=== PATIENT | male | born 1965 | race Caucasian/White ===

== ENCOUNTER 2021-09-16 03:26 | Inpatient (IN) ==
[2021-09-16 04:21] LABS: INR 1.1 (0.9-1.1); Prothrombin Time 10.9 Seconds (9.0-12.0)
[2021-09-16 04:31] LABS: BUN Creatinine Ratio 16.5 (10-20); Calcium 8.5 mg/dl (8.5-10.1); Creatinine Clr Calc Pharmacy 74.9 ml/min; Est GFR (African American) 76.9 ml/min; Est GFR (Non-African American) 66.3 ml/min; Potassium 3.8 mmol/L (3.5-5.1)
[2021-09-16 04:33] LABS: Albumin Globulin Ratio 0.8 (0.9-2); Bilirubin,Total 0.3 mg/dl (0.2-1); Globulin 3.8 gm/dl (2.5-4.0); Total Protein 6.8 gm/dl (6.4-8.2)
[2021-09-16 04:38] LABS: Hematocrit (blood only) 15.4 % (42-52); Mean Corpuscular Hemoglobin 16.7 pg (25-34); Mean Corpuscular Volume 64.2 fL (80-100); Mean Platelet Volume 9.4 fL (7.4-10.4); Platelet Count 424 K/uL (130-400); RDW Coefficient of Variation 17.9 % (11.5-14.5); RDW Standard Deviation 41.9 fL (36.4-46.3)
[2021-09-16 04:40] LABS: Basophils # (auto) 0.02 K/uL (0-0.2); Basophils % (auto) 0.2 %; Eosinophils # (auto) 0.35 K/uL (0-0.5); Eosinophils % (auto) 2.9 %; Hypochromasia Present; Immature Granulocytes # (auto) 0.02 K/uL (0.00-0.02); Immature Granulocytes % (auto) 0.2 %; Lymphocytes # (auto) 1.44 K/uL (1.2-3.4); Monocytes # (auto) 0.73 K/uL (0.11-0.59); Monocytes % (auto) 6.1 %; Neutrophils # (auto) 9.44 K/uL (1.4-6.5); Neutrophils % (auto) 78.6 %; Ovalocytes 1+; Tear Drop Cells 1+
[2021-09-16] MEDS ORDERED: PANTOPRAZOLE BOLUS/DRIP 1 EA IV STA (07:04)
--- NOTE | 2021-09-16 07:14 | Emergency Department Note ---
Impression & Plan Anemia, DVT (deep venous thrombosis), Heme positive stool Admit to the [facility] ED Provider Note NAME: FRANCIE AVILES AGE: 56 SEX: M ARRIVES VIA: Walk-In INFORMANT: Patient his daughter ED PROVIDER(S): Angie Branch DO CHIEF COMPLAINT: Low hemoglobin PLAN: Disposition: Admit to the [facility] Condition: Stable MEDICAL DECISION MAKING: This is a 56-year-old male patient who presents to the emergency department at the direction of his PCP for a low hemoglobin. The patient had been seen yesterday for generalized weakness and shortness of breath. Routine laboratory testing was done and the results came back tonight with a hemoglobin less than 4. Patient had also had a left lower extremity duplex performed which showed evidence of a clot. The patient had been started yesterday on Eliquis. Hemoccult testing of the stool here was positive. The case was discussed with the [facility] and they will admit for symptomatic anemia. Triage Nursing notes reviewed and agree with them. Additional history obtained from patient's daughter Vital Signs: reviewed and remarkable for tachycardia Differential diagnosis: GI bleeding, symptomatic anemia, PT Diagnostics interpreted by me: Cardiac Monitoring: Sinus tachycardia at 102 Laboratory studies: See below HPI: 56/M arrives for evaluation of anemia. Patient presents to the emergency department at the direction of his PCP for profound anemia. The patient had b een feeling increasingly short of breath and weak over the past couple of weeks. He was originally seen at urgent care for those complaints and was told he had seasonal allergies. He followed up with his PCP who found the patient extremely pale and ordered routine blood work. Hemoglobin was found to be less than 4. The patient received a phone call overnight describing this blood level and was told to come to the emergency department. Patient also complained of left leg pain for which he had an ultrasound and this revealed a DVT for which she was started on Eliquis. ROS: See above HPI for pertinent positives & negatives. A total of 10 systems reviewed and were otherwise negative. PAST MEDICAL HISTORY:Patient denies any health history PAST SURGICAL HISTORY:See Below FAMILY HISTORY:See Below SOCIAL HISTORY:Patient is ; he does not smoke HOME MEDICATIONS:See list ALLERGIES:None VITALS:See Below PHYSICAL EXAMINATION: HEENT: Head - normocephalic and atraumatic. Pupils are equal, round, and reactive to light. Extraocular eye muscles are intact, and sclera are anicteric. Nose - moist nasal mucosa without discharge. Mouth - moist buccal mucosa. Oropharynx is nonerythematous and there is no tonsillar exudate or edema noted. Poor dentition Neck: Supple; no cervical lymphadenopathy Heart: Regular rate and rhythm. There is a normal S1 and S2 with no murmurs, clicks, or gallops appreciated. Lungs: Clear to auscultation bilaterally with no wheezes, rales, or rhonchi. Abdomen: Soft, completely nontender, nondistended, with good bowel sounds. There are no palpable pulsatile masses or hepatosplenomegaly. There is no guarding, rigidity, or rebound noted. Extremities: No evidence of cyanosis, clubbing, or edema. There are easily palpable peripheral pulses. Skin: Extremely pale, warm and dry with good turgor and no rashes. ED COURSE: Times/Reassessments: 0455: The patient was evaluated in room C10. A complete history and physical was performed. An IV lock was initiated and labs were drawn as above. An order was placed for continuous cardiac monitoring. The patient is in a sinus tachycardia at 102. Nursing staff tested the patient stools and they were heme positive although the stool was brown in color. I discussed the case with the [facility] and they will evaluate for further management. Angie Branch DO Past Med/Surg History Medical History (Updated 09/17/21 @ 08:55 by Angie Branch DO) DVT (deep venous thrombosis) No known health problems Surgical History No history of previous surgery Family History Other No history of previous surgery No known health problems Social History Smoking Status: Never smoker Do You Dip or Chew Tobacco: Yes; Hx Alcohol Use: No Hx Substance Use: No Preferred Language: Lao Communication Ability: Effective Storage And Backup Administrator Required: No Beliefs That Will Affect Care: None marital status: Current Living Situation: Spouse Other Information That Helps Us Care for You: No Feels Safe at Home: Yes Safety Concerns: Feels Safe At This Time Assistive Devices: None Allergies Allergies Allergy/AdvReac Type Severity Reaction Status Date / Time No Known Allergies Allergy Unverified 09/16/21 08:17 Home Meds Home Medications Medication Instructions Recorded Confirmed apixaban 5 mg tablet (Eliquis) 5 mg PO BID 09/16/21 09/16/21 benzonatate 100 mg capsule 100 mg PO TID 09/16/21 09/16/21 levocetirizine 5 mg tablet 5 mg PO DAILY 09/16/21 09/16/21 omeprazole 20 mg capsule,delayed 20 mg PO DAILY 09/16/21 09/16/21 release Results & Data (ED) Vital Signs Vital Signs - 24 hr 09/16/21 03:31 Temperature 37.1 C Temperature Source Temporal Artery Scan Pulse Rate 102 H Respiratory Rate 20 Respiratory Depth Normal Blood Pressure 131/72 Blood Pressure Mean 91 Pulse Oximetry 98 Oxygen Delivery Method Room Air Sepsis Recent Fever Within 48 Hours No Sepsis New/Unexplained Change in Mental Status N/A Sepsis Action Taken by Nursing No Action Required Laboratory Data Result diagrams: 09/17/21 05:26 09/17/21 05:26 Lab Results 09/16/21 09/16/21 09/16/21 Range/Units 04:01 04:01 04:01 WBC 12.00 H (4.8-10.8) K/uL RBC 2.40 L (4.7-6.1) M/uL Hgb 4.0 L* (14.0-18.0) g/dL Hct 15.4 L* (42-52) % MCV 64.2 L (80-100) fL MCH 16.7 L (25-34) pg MCHC 26.0 L (32-36) g/dL RDW Std Deviation 41.9 (36.4-46.3) fL RDW Coeff of Jaad 17.9 H (11.5-14.5) % Plt Count 424 H (130-400) K/uL MPV 9.4 (7.4-10.4) fL Immature Gran % (Auto) 0.2 % Neut % (Auto) 78.6 % Lymph % (Auto) 12.0 % Mitchell % (Auto) 6.1 % Eos % (Auto) 2.9 % Baso % (Auto) 0.2 % Neut # (Auto) 9.44 H (1.4-6.5) K/uL Lymph # (Auto) 1.44 (1.2-3.4) K/uL Mitchell # (Auto) 0.73 H (0.11-0.59) K/uL Eos # (Auto) 0.35 (0-0.5) K/uL Baso # (Auto) 0.02 (0-0.2) K/uL Immature Gran # (Auto) 0.02 (0.00-0.02) K/uL Hypochromasia Present Tear Drop Cells 1+ Ovalocytes 1+ PT (9.0-12.0) Seconds INR (0.9-1.1) Sodium 141 (136-145) mmol/L Potassium 3.8 (3.5-5.1) mmol/L Chloride 110 H (98-107) mmol/L Carbon Dioxide 24 (21-32) mmol/L Anion Gap 7.0 (3-11) BUN 20 H (7-18) mg/dl Creatinine 1.22 (0.6-1.4) mg/dl Est Cr Clr Drug Dosing 74.9 ml/min Est GFR ( Amer) 76.9 ml/min Est GFR (Non-Af Amer) 66.3 ml/min BUN/Creatinine Ratio 16.5 (10-20) Glucose 100 H (70-99) mg/dl Calcium 8.5 (8.5-10.1) mg/dl Total Bilirubin 0.3 (0.2-1) mg/dl AST 9 L (15-37) U/L ALT 17 (12-78) U/L Alkaline Phosphatase 111 (45-117) U/L Total Protein 6.8 (6.4-8.2) gm/dl Albumin 3.0 L (3.4-5.0) gm/dl Globulin 3.8 (2.5-4.0) gm/dl Albumin/Globulin Ratio 0.8 L (0.9-2) POC Stool Occult Blood (Negative) COVID-19 Eval Order SARS-CoV-2 (PCR) (Negative) Blood Type O Positive Blood Type Recheck Antibody Screen NEGATIVE Crossmatch See Detail 09/16/21 09/16/21 09/16/21 Range/Units 04:01 05:10 05:32 WBC (4.8-10.8) K/uL RBC (4.7-6.1) M/uL Hgb (14.0-18.0) g/dL Hct (42-52) % MCV (80-100) fL MCH (25-34) pg MCHC (32-36) g/dL RDW Std Deviation (36.4-46.3) fL RDW Coeff of Jada (11.5-14.5) % Plt Count (130-400) K/uL MPV (7.4-10.4) fL Immature Gran % (Auto) % Neut % (Auto) % Lymph % (Auto) % Mitchell % (Auto) % Eos % (Auto) % Baso % (Auto) % Neut # (Auto) (1.4-6.5) K/uL Lymph # (Auto) (1.2-3.4) K/uL Mitchell # (Auto) (0.11-0.59) K/uL Eos # (Auto) (0-0.5) K/uL Baso # (Auto) (0-0.2) K/uL Immature Gran # (Auto) (0.00-0.02) K/uL Hypochromasia Tear Drop Cells Ovalocytes PT 10.9 (9.0-12.0) Seconds INR 1.1 (0.9-1.1) Sodium (136-145) mmol/L Potassium (3.5-5.1) mmol/L Chloride (98-107) mmol/L Carbon Dioxide (21-32) mmol/L Anion Gap (3-11) BUN (7-18) mg/dl Creatinine (0.6-1.4) mg/dl Est Cr Clr Drug Dosing ml/min Est GFR ( Amer) ml/min Est GFR (Non-Af Amer) ml/min BUN/Creatinine Ratio (10-20) Glucose (70-99) mg/dl Calcium (8.5-10.1) mg/dl Total Bilirubin (0.2-1) mg/dl AST (15-37) U/L ALT (12-78) U/L Alkaline Phosphatase (45-117) U/L Total Protein (6.4-8.2) gm/dl Albumin (3.4-5.0) gm/dl Globulin (2.5-4.0) gm/dl Albumin/Globulin Ratio (0.9-2) POC Stool Occult Blood Positive A (Negative) COVID-19 Eval Order SARS-CoV-2 (PCR) (Negative) Blood Type Blood Type Recheck O Positive Antibody Screen Crossmatch 09/16/21 09/16/21 Range/Units 05:35 05:35 WBC (4.8-10.8) K/uL RBC (4.7-6.1) M/uL Hgb (14.0-18.0) g/dL Hct (42-52) % MCV (80-100) fL MCH (25-34) pg MCHC (32-36) g/dL RDW Std Deviation (36.4-46.3) fL RDW Coeff of Jada (11.5-14.5) % Plt Count (130-400) K/uL MPV (7.4-10.4) fL Immature Gran % (Auto) % Neut % (Auto) % Lymph % (Auto) % Mitchell % (Auto) % Eos % (Auto) % Baso % (Auto) % Neut # (Auto) (1.4-6.5) K/uL Lymph # (Auto) (1.2-3.4) K/uL Mitchell # (Auto) (0.11-0.59) K/uL Eos # (Auto) (0-0.5) K/uL Baso # (Auto) (0-0.2) K/uL Immature Gran # (Auto) (0.00-0.02) K/uL Hypochromasia Tear Drop Cells Ovalocytes PT (9.0-12.0) Seconds INR (0.9-1.1) Sodium (136-145) mmol/L Potassium (3.5-5.1) mmol/L Chloride (98-107) mmol/L Carbon Dioxide (21-32) mmol/L Anion Gap (3-11) BUN (7-18) mg/dl Creatinine (0.6-1.4) mg/dl Est Cr Clr Drug Dosing ml/min Est GFR ( Amer) ml/min Est GFR (Non-Af Amer) ml/min BUN/Creatinine Ratio (10-20) Glucose (70-99) mg/dl Calcium (8.5-10.1) mg/dl Total Bilirubin (0.2-1) mg/dl AST (15-37) U/L ALT (12-78) U/L Alkaline Phosphatase (45-117) U/L Total Protein (6.4-8.2) gm/dl Albumin (3.4-5.0) gm/dl Globulin (2.5-4.0) gm/dl Albumin/Globulin Ratio (0.9-2) POC Stool Occult Blood (Negative) COVID-19 Eval Order Covid19 at [facility] SARS-CoV-2 (PCR) NEGATIVE (Negative) Blood Type Blood Type Recheck Antibody Screen Crossmatch Administered Medications Acetaminophen (Acetaminophen 325 Mg Tab) 650 mg PO Q4H PRN PRN Reason: Pain or Fever Stop: 10/16/21 07:22 Last Admin: 09/16/21 19:32 Dose: 650 mg Documented by: [id number] Sodium Chloride (Nss 1000ml) 1,000 mls @ 80 mls/hr IV .[id number] [facility] Stop: 10/16/21 07:22 Last Admin: 09/17/21 01:00 Dose: 80 mls/hr Documented by: [id number] Infusion: 09/16/21 20:30 Dose: 80 mls/hr Documented by: [id number] Admin: 09/16/21 08:00 Dose: 80 mls/hr Documented by: [id number] Pantoprazole Sodium 40 mg/ (Dextrose) 100 mls @ 20 mls/hr IV Q5H [facility] Stop: 10/16/21 07:59 Last Admin: 09/17/21 04:09 Dose: 8 mg/hr, 20 mls/hr Documented by: [id number] Infusion: 09/17/21 04:09 Dose: 8 mg/hr, 20 mls/hr Documented by: [id number] Admin: 09/16/21 23:27 Dose: 8 mg/hr, 20 mls/hr Documented by: [id number] Infusion: 09/16/21 23:13 Dose: 8 mg/hr, 20 mls/hr Documented by: [id number] Admin: 09/16/21 18:13 Dose: 8 mg/hr, 20 mls/hr Documented by: [id number] Infusion: 09/16/21 18:13 Dose: 8 mg/hr, 20 mls/hr Documented by: [id number] Admin: 09/16/21 14:12 Dose: 8 mg/hr, 20 mls/hr Documented by: [id number] Infusion: 09/16/21 14:12 Dose: 8 mg/hr, 20 mls/hr Documented by: [id number] Admin: 09/16/21 09:21 Dose: 8 mg/hr, 20 mls/hr Documented by: [id number] Iodixanol (Visipaque) 15 ml IV UD PRN PRN Reason: Interaction Checking Stop: 09/20/21 13:34 Last Admin: 09/16/21 13:36 Dose: 15 ml Documented by: [id number] Discontinued Medications Acetaminophen (Acetaminophen 325 Mg Tab) 650 mg PO NOW ONE Stop: 09/16/21 07:31 Last Admin: 09/16/21 08:45 Dose: Not Given Documented by: [id number] Acetaminophen (Acetaminophen 325 Mg Tab) 650 mg PO NOW ONE Stop: 09/17/21 07:01 Last Admin: 09/17/21 08:28 Dose: 650 mg Documented by: [id number] Cefazolin Sodium (Cefazolin 2,000 Mg/15 Ml Iv Push) Confirm Administered Dose 2,000 mg IV .STK-MED ONE Stop: 09/16/21 12:58 Last Admin: 09/16/21 14:11 Dose: Not Given Documented by: [id number] Diphenhydramine HCl (Diphenhydramine Capsule 25 Mg Cap) 25 mg PO NOW ONE Stop: 09/17/21 07:01 Last Admin: 09/17/21 08:28 Dose: 25 mg Documented by: [id number] Fentanyl Citrate (Fentanyl Citrate 100 Mcg/2 Ml Vial) Confirm Administered Dose 100 mcg .ROUTE .STK-MED ONE Stop: 09/16/21 12:55 Last Admin: 09/16/21 13:13 Dose: 25 mcg Documented by: [id number] Furosemide (Furosemide Inj 20 Mg/2 Ml Vial) 20 mg IV ONE ONE Stop: 09/16/21 10:31 Last Admin: 09/16/21 11:20 Dose: 20 mg Documented by: [id number] Pantoprazole Sodium (Protonix Bolus/Drip) 0 mls @ 1 mls/hr IV ONE STA Stop: 09/16/21 07:05 Last Admin: 09/16/21 11:09 Dose: Not Given Documented by: [id number] Pantoprazole Sodium 80 mg/ (Dextrose) 120 mls @ 400 mls/hr IV NOW ONE Stop: 09/16/21 08:02 Last Infusion: 09/16/21 11:07 Dose: 0 mls/hr Documented by: [id number] Admin: 09/16/21 09:05 Dose: 400 mls/hr Documented by: [id number] Cefazolin Sodium (Ancef 2000mg) 2,000 mg in 15 mls @ 2.5 mls/min IV PREOP ONE; Protocol Stop: 09/16/21 10:45 Last Admin: 09/16/21 13:01 Dose: 2.5 mls/min Documented by: [id number] Ioversol (Optiray 320 125ml) 120 ml IV ONCE ONE Stop: 09/16/21 07:20 Last Admin: 09/16/21 07:20 Dose: 120 ml Documented by: [id number] Lidocaine HCl (Lidocaine 1% Local 20 Ml Vial) 7 ml INJ NOW ONE Stop: 09/16/21 13:36 Last Admin: 09/16/21 13:36 Dose: 7 ml Documented by: [id number] Midazolam HCl (Midazolam Hcl 1 Mg/Ml 2ml Vial) Confirm Administered Dose 2 mg .ROUTE .STK-MED ONE Stop: 09/16/21 12:55 Last Admin: 09/16/21 13:13 Dose: 1 mg Documented by: [id number] Miscellaneous Information (Patient's Allergy Info Needs Entered) 1 ea N/A Q30M [facility] Stop: 10/16/21 07:29 Last Admin: 09/16/21 11:10 Dose: Not Given Documented by: [id number] Admin: 09/16/21 11:10 Dose: Not Given Documented by: [id number] Admin: 09/16/21 11:07 Dose: Not Given Documented by: [id number] Discharge Plan Visit Data Chief Complaint: Abnormal Labs/Diagnostic Testing Stated Complaint: DOC ORDERED BLOOD TRANSFUSION ED Provider: Angie Branch Discharge Problem: Anemia, DVT (deep venous thrombosis), Heme positive stool Patient Disposition: Admitted As Inpatient Discharge Instructions Interventions: ED Discharge Assessment Last Done: 09/16/21 10:37 Discharge Problem: Anemia Qualifiers: Anemia type: unspecified type Qualified Code(s): D64.9 - Anemia, unspecified DVT (deep venous thrombosis) Qualifiers: DVT location: lower extremity Affected thrombotic vein of extremity: unspecified lower extremity distal vein Chronicity: acute Laterality: left Qu alified Code(s): I82.4Z2 - Acute embolism and thrombosis of unspecified deep veins of left distal lower extremity
[2021-09-16] MEDS ORDERED: OPTIRAY 320 125ml IV ONE (07:19)
[2021-09-16] MEDS ORDERED: SODIUM CHLORIDE 0.9% 250 ML IV PRN (07:23)
[2021-09-16] MEDS ORDERED: NITROGLYCERIN SL 0.4 MG/TAB TAB SL PRN (07:23)
[2021-09-16] MEDS ORDERED: ACETAMINOPHEN 325 MG TAB PO PRN (07:23)
[2021-09-16] MEDS ORDERED: ONDANSETRON INJ 2 MG/ML 2 ML VIAL IV PRN (07:23)
[2021-09-16] MEDS ORDERED: ACETAMINOPHEN 325 MG TAB PO ONE (07:30)
[2021-09-16] MEDS ORDERED: PANTOprazole 80 MG in DEXTROSE 5% 100 ML IV ONE (07:45)
[2021-09-16] MEDS: SODIUM CHLORIDE 0.9% 1000ML 1,000 ML IV SCH (08:00)
--- NOTE | 2021-09-16 08:14 | CT Scan Report ---
CT angio chest PE protocol CT DOSE: 480.59 mGy.cm HISTORY: 56 years-old Male with PE. Acute shortness of breath TECHNIQUE: Multiple CTA images of the chest were obtained after the intravenous administration of 120 ml Optiray. Coronal and sagittal MIPS were obtained from the axial data set and were submitted for review. All measurements were obtained according to NASCET criteria. A dose lowering technique was u tilized adhering to the principles of ALARA. COMPARISON: None. FINDINGS: CTA: Mild cardiomegaly. No pericardial effusion. No thoracic aortic aneurysm or dissection. Patency of the imaged great vessels. The pulmonary artery is opacified to level the subsegmental branches. Evaluati on is limited secondary to respiratory motion artifact. Segmental and subsegmental pulmonary emboli o f the right lower lobe and lingula. No central pulmonary bullae or right heart strain. CT CHEST: Unremarkable thyroid. Mildly enlarged paratracheal, subcarinal and hilar lymph nodes measure up to ap proximately 10 mm. Trace pleural effusions. No pneumothorax. Mild intralobular septal thickening with subsegmental bibasilar atelectasis. 2.6 cm subpleural consolidative opacity of the lingula on image 132. The central airways are patent. Large hiatal hernia. Mild diffuse esophageal wall thickening. Unremarkable soft tissues. There is no acute fracture. IMPRESSION: 1. Study is degraded by respiratory motion artifact. Segmental and subsegmental bilateral pulmonary e mboli are noted without evidence of right heart strain. 2. Trace pleural effusions. 3. Cardiomegaly with mild pulmonary edema. 4. Groundglass densities of the lingula with a 2.6 cm subpleural consolidative density suggestive of pneumonia versus pulmonary infarct. 5. Large hiatal hernia with mild diffuse esophageal wall thickening. ACT 112: Negative or not required by law. The above report was generated using voice recognition software. It may contain grammatical, syntax o r spelling errors. Electronically signed by: Kadeem Linder M.D. 09/16/2021 8:13 AM
[2021-09-16] MEDS: PANTOprazole 40 MG in DEXTROSE 5% 100 ML IV SCH ×4 (09:21→23:27)
[2021-09-16 09:28] LABS: Appearance Urine Clear (Clear); Bilirubin Urine Negative (Negative); Blood Urine Negative (Negative); Color Urine Yellow; Glucose Urine UA Negative (Negative); Ketones Urine Negative (Negative); Leukocyte Esterase Urine Negative (Negative); Nitrite Urine Negative (Negative); Protein Urine Negative (Negative); Specific Gravity Urine > 1.045 (1.000-1.030); Urobilinogen Urine Negative (Negative)
--- NOTE | 2021-09-16 09:31 | Gastrointestinal Consultation ---
Date of Consultation September 16, 2021 Assessment & Plan (1) Iron deficiency anemia: 56 year old male admitted w/ symptomatic microcytic anemia, HGB 4, outpatient labs show iron deficiency w/ CT imaging showing bilateral pulmonary emboli, large HH w/ esophageal wall thickening Admit for further workup PO PPI BID Trend HGB Monitor output Transfuse per primary team Recommend full liquids Sunday and Sunday Can have clear liquids Sunday Golytely 4L on Sunday starting around 1700 NPO after midnight EGD/Colonoscopy 09/19/21 Thank you for allowing us to participate in the care of this patient. Please call with any acute changes, questions or concerns. Please see addendum below with additional recommendation from my supervising physician. Supervising Physician Co-Signing Physician Notes I saw and evaluated the patient in the emergency room. We were consulted for evaluation of severe iron deficiency anemia. The patient denies having hematochezia, melena, hematemesis but notes that has had some alteration of his bowel habits over the past 6 to 8 weeks. The patient has never undergone upper endoscopy nor colonoscopy in the past. Physical examination Pallor of skin noted No abdominal tenderness noted No caput medusa noted Impression patient presents with severe iron deficiency anemia with active transfusion as we are doing her evaluation today. Given the iron deficiency we would recommend upper endoscopy and colonoscopy, this could certainly be done as an inpatient on Sunday for expedited if the patient is discharged over the . Should the patient remain in the hospital we would recommend placing him on to Lovenox given the recent pulmonary emboli, a liquid diet over the weekend and a bowel preparation to be written for Sunday afternoon Recommendations Consider a CT of the abdomen and pelvis Transition to Lovenox from Xarelto Upper endoscopy and colonoscopy Sunday Full liquid diet okay over the weekend Bowel preparation on Sunday evening Please call with any questions or concerns over the weekend History of Present Illness Reason for Consultation: anemia Requesting Physician: Lizzeth Attending Physician: Deepak Moreau MD History of Present Illness 56 year old male w/o past medical history admitted w/ abnormal outpatietn labs, HGB 3.5. GI asked to evaluate for anemia. Pt was seen in the ED. Denies abd pain. Has had some constipation for the past few weeks but denies any black or bloody stools. Notes he has had progressive weakness, SOB and fatigue x 1 month which had acutely worsened. Has never had EGD/Colon Denies family history of GI malignancy CT chest 2020: . Study is degraded by respiratory motion artifact. Segmental and subsegmental bilateral pulmonary emboli are noted without evidence of right heart strain. 2. Trace pleural effusions. 3. Cardiomegaly with mild pulmonary edema. 4. Groundglass densities of the lingula with a 2.6 cm subpleural consolidative density suggestive of pneumonia versus pulmonary infarct. 5. Large hiatal hernia with mild diffuse esophageal wall thickening. Allergies Allergy/AdvReac Type Severity Reaction Status Date / Time No Known Allergies Allergy Unverified 09/16/21 08:17 Home Medications Medication Instructions Recorded Confirmed Type apixaban 5 mg tablet (Eliquis) 5 mg PO BID 09/16/21 09/16/21 History benzonatate 100 mg capsule 100 mg PO TID 09/16/21 09/16/21 History levocetirizine 5 mg tablet 5 mg PO DAILY 09/16/21 09/16/21 History omeprazole 20 mg capsule,delayed 20 mg PO DAILY 09/16/21 09/16/21 History release Patient History Medical History (Updated 09/16/21 @ 10:38 by Susy Verde PA-C) DVT (deep venous thrombosis) No known health problems Surgical History No history of previous surgery Family History Other No history of previous surgery No known health problems Social History Smoking Status: Never smoker Do You Dip or Chew Tobacco: Yes; Hx Alcohol Use: No Hx Substance Use: No Preferred Language: Czech Communication Ability: Effective Radio Operator Required: No Beliefs That Will Affect Care: None marital status: Current Living Situation: Spouse Other Information That Helps Us Care for You: No Feels Safe at Home: Yes Safety Concerns: Feels Safe At This Time Assistive Devices: None Review of Systems Review of Systems: All systems reviewed & are unremarkable except as noted in HPI & below Physical Exam Constitutional: WD/WN, vitals as above Neck: trachea midline, no thyromegaly Respiratory: normal respiratory effort; no respiratory distress and no labored breathing Auscultation: + diminished lung sounds; no crackles Cardiovascular: Rate/Rhythm: regular rhythm and + tachycardic Gastrointestinal (Abdomen): normal bowel sounds, soft, nontender, no hepatosplenomegaly Skin: no rashes, warm and dry Results & Data ([facility]) Vital Signs (Past 12 Hours) Vital Signs Temp Pulse Pulse Resp BP BP Pulse Ox 09/16/21 08:23 36.7 C 92 H 24 128/80 98 09/16/21 08:20 36.7 C 89 20 119/74 100 09/16/21 08:08 36.7 C 91 H 18 119/74 99 09/16/21 03:31 37.1 C 102 H 20 131/72 98 Laboratory Results 09/16/21 09/16/21 09/16/21 Range/Units Unknown 05:35 05:35 WBC (4.8-10.8) K/uL RBC (4.7-6.1) M/uL Hgb (14.0-18.0) g/dL Hct (42-52) % MCV (80-100) fL MCH (25-34) pg MCHC (32-36) g/dL RDW Std Deviation (36.4-46.3) fL RDW Coeff of Jada (11.5-14.5) % Plt Count (130-400) K/uL MPV (7.4-10.4) fL Immature Gran % (Auto) % Neut % (Auto) % Lymph % (Auto) % [place] % (Auto) % Eos % (Auto) % Baso % (Auto) % Neut # (Auto) (1.4-6.5) K/uL Lymph # (Auto) (1.2-3.4) K/uL [place] # (Auto) (0.11-0.59) K/uL Eos # (Auto) (0-0.5) K/uL Baso # (Auto) (0-0.2) K/uL Immature Gran # (Auto) (0.00-0.02) K/uL Hypochromasia Tear Drop Cells Ovalocytes PT (9.0-12.0) Seconds INR (0.9-1.1) Sodium (136-145) mmol/L Potassium (3.5-5.1) mmol/L Chloride (98-107) mmol/L Carbon Dioxide (21-32) mmol/L Anion Gap (3-11) BUN (7-18) mg/dl Creatinine (0.6-1.4) mg/dl Est Cr Clr Drug Dosing ml/min Est GFR ( Amer) ml/min Est GFR (Non-Af Amer) ml/min BUN/Creatinine Ratio (10-20) Glucose (70-99) mg/dl Calcium (8.5-10.1) mg/dl Total Bilirubin (0.2-1) mg/dl AST (15-37) U/L ALT (12-78) U/L Alkaline Phosphatase (45-117) U/L Total Protein (6.4-8.2) gm/dl Albumin (3.4-5.0) gm/dl Globulin (2.5-4.0) gm/dl Albumin/Globulin Ratio (0.9-2) Urine Color Pending Urine Appearance Pending Urine pH Pending Ur Specific [place] Pending Urine Protein Pending Urine Glucose (UA) Pending Urine Ketones Pending Urine Blood Pending Urine Nitrite Pending Urine Bilirubin Pending Urine Urobilinogen Pending Ur Leukocyte Esterase Pending COVID-19 Eval Order Covid19 at [facility] SARS-CoV-2 (PCR) NEGATIVE (Negative) Blood Type Blood Type Recheck Antibody Screen Crossmatch 09/16/21 09/16/21 09/16/21 Range/Units 05:10 04:01 04:01 WBC (4.8-10.8) K/uL RBC (4.7-6.1) M/uL Hgb (14.0-18.0) g/dL Hct (42-52) % MCV (80-100) fL MCH (25-34) pg MCHC (32-36) g/dL RDW Std Deviation (36.4-46.3) fL RDW Coeff of Jada (11.5-14.5) % Plt Count (130-400) K/uL MPV (7.4-10.4) fL Immature Gran % (Auto) % Neut % (Auto) % Lymph % (Auto) % [place] % (Auto) % Eos % (Auto) % Baso % (Auto) % Neut # (Auto) (1.4-6.5) K/uL Lymph # (Auto) (1.2-3.4) K/uL [place] # (Auto) (0.11-0.59) K/uL Eos # (Auto) (0-0.5) K/uL Baso # (Auto) (0-0.2) K/uL Immature Gran # (Auto) (0.00-0.02) K/uL Hypochromasia Tear Drop Cells Ovalocytes PT 10.9 (9.0-12.0) Seconds INR 1.1 (0.9-1.1) Sodium (136-145) mmol/L Potassium (3.5-5.1) mmol/L Chloride (98-107) mmol/L Carbon Dioxide (21-32) mmol/L Anion Gap (3-11) BUN (7-18) mg/dl Creatinine (0.6-1.4) mg/dl Est Cr Clr Drug Dosing ml/min Est GFR ( Amer) ml/min Est GFR (Non-Af Amer) ml/min BUN/Creatinine Ratio (10-20) Glucose (70-99) mg/dl Calcium (8.5-10.1) mg/dl Total Bilirubin (0.2-1) mg/dl AST (15-37) U/L ALT (12-78) U/L Alkaline Phosphatase (45-117) U/L Total Protein (6.4-8.2) gm/dl Albumin (3.4-5.0) gm/dl Globulin (2.5-4.0) gm/dl Albumin/Globulin Ratio (0.9-2) Urine Color Urine Appearance Urine pH Ur Specific [place] Urine Protein Urine Glucose (UA) Urine Ketones Urine Blood Urine Nitrite Urine Bilirubin Urine Urobilinogen Ur Leukocyte Esterase COVID-19 Eval Order SARS-CoV-2 (PCR) (Negative) Blood Type O Positive Blood Type Recheck O Positive Antibody Screen NEGATIVE Crossmatch See Detail 09/16/21 09/16/21 Range/Units 04:01 04:01 WBC 12.00 H (4.8-10.8) K/uL RBC 2.40 L (4.7-6.1) M/uL Hgb 4.0 L* (14.0-18.0) g/dL Hct 15.4 L* (42-52) % MCV 64.2 L (80-100) fL MCH 16.7 L (25-34) pg MCHC 26.0 L (32-36) g/dL RDW Std Deviation 41.9 (36.4-46.3) fL RDW Coeff of Jada 17.9 H (11.5-14.5) % Plt Count 424 H (130-400) K/uL MPV 9.4 (7.4-10.4) fL Immature Gran % (Auto) 0.2 % Neut % (Auto) 78.6 % Lymph % (Auto) 12.0 % [place] % (Auto) 6.1 % Eos % (Auto) 2.9 % Baso % (Auto) 0.2 % Neut # (Auto) 9.44 H (1.4-6.5) K/uL Lymph # (Auto) 1.44 (1.2-3.4) K/uL [place] # (Auto) 0.73 H (0.11-0.59) K/uL Eos # (Auto) 0.35 (0-0.5) K/uL Baso # (Auto) 0.02 (0-0.2) K/uL Immature Gran # (Auto) 0.02 (0.00-0.02) K/uL Hypochromasia Present Tear Drop Cells 1+ Ovalocytes 1+ PT (9.0-12.0) Seconds INR (0.9-1.1) Sodium 141 (136-145) mmol/L Potassium 3.8 (3.5-5.1) mmol/L Chloride 110 H (98-107) mmol/L Carbon Dioxide 24 (21-32) mmol/L Anion Gap 7.0 (3-11) BUN 20 H (7-18) mg/dl Creatinine 1.22 (0.6-1.4) mg/dl Est Cr Clr Drug Dosing 74.9 ml/min Est GFR ( Amer) 76.9 ml/min Est GFR (Non-Af Amer) 66.3 ml/min BUN/Creatinine Ratio 16.5 (10-20) Glucose 100 H (70-99) mg/dl Calcium 8.5 (8.5-10.1) mg/dl Total Bilirubin 0.3 (0.2-1) mg/dl AST 9 L (15-37) U/L ALT 17 (12-78) U/L Alkaline Phosphatase 111 (45-117) U/L Total Protein 6.8 (6.4-8.2) gm/dl Albumin 3.0 L (3.4-5.0) gm/dl Globulin 3.8 (2.5-4.0) gm/dl Albumin/Globulin Ratio 0.8 L (0.9-2) Urine Color Urine Appearance Urine pH Ur Specific [place] Urine Protein Urine Glucose (UA) Urine Ketones Urine Blood Urine Nitrite Urine Bilirubin Urine Urobilinogen Ur Leukocyte Esterase COVID-19 Eval Order SARS-CoV-2 (PCR) (Negative) Blood Type Blood Type Recheck Antibody Screen Crossmatch
--- NOTE | 2021-09-16 09:42 | History & Physical Bridge Note ---
Date of Service September 16, 2021 History & Physical Bridge Note I have examined the patient, reviewed the History & Physical and in the interval since the performance of the History & Physical I have noted the following changes of clinical significance: no changes noted
--- NOTE | 2021-09-16 10:02 | History and Physical Report ---
DATE OF ADMISSION: 09/16/2021 CHIEF COMPLAINT: Abnormal labs. HISTORY OF PRESENT ILLNESS: A 56-year-old male with past medical history significant for pulsatile tinnitus , hearing loss, was sent in by PCP because of abnormal labs. The patient is having shortness of breath on exertion for 2 weeks and some runny nose from his allergies. He went to urgent care and as was not getting better went sent to see PCP. He was seen by PCP yesterday. It seems his shortness of breath is worse for the last 1 week. It is mostly worse with exertion and he also has some swelling in the left leg. PCP ordered some labs and he also had a left lower extremity Doppler. The left lower extremity Doppler came back as acute DVT and he is placed on Eliquis, but later the labs came, his hemoglobin was 3.5 and he is advised to come to the ER. In the ER, his hemoglobin is 4, WBC is 12, platelets 424, creatinine 1.2. COVID negative. The patient is not vaccinated for COVID. He is hemodynamically stable. Stool was brown, but was positive for Hemoccult as per the ER. The patient denies any chest pain, no nausea, no vomiting, no abdominal pain, no diarrhea. He says once in a while, he has black stools. Denies taking any aspirin or [id number] ibuprofen or any pain medications. Denies any headache. No blurred visions, no earache, no sore throat. Appetite is okay. No recent weight gain or weight loss. No difficulty swallowing. Normal bladder movements. in the room who answered most of the history. ALLERGIES: No known drug allergies as per Epic. PAST MEDICAL HISTORY: As mentioned above. PAST SURGICAL HISTORY: None. MEDICATIONS: Just started on Eliquis. FAMILY HISTORY: No significant family history as per the patient. SOCIAL HISTORY: , no smoking. Chews one can every 2 days. No alcohol, no drug use. REVIEW OF SYSTEMS: As per HPI. Rest of the review of systems is negative. PHYSICAL EXAMINATION: GENERAL: The patient is of moderate build, not in acute distress. VITAL SIGNS: Temperature 37.1, pulse 102, respiratory rate 20, blood pressure 131/72, oxygen 98% on room air. HEENT: Pupils equal, round and reactive to light. Oral mucosa moist. NECK: No JVD. No neck masses. CARDIOVASCULAR: S1 and S2 heard. Regular rate and rhythm. No murmur, no gallop. RESPIRATORY SYSTEM: Normal AP diameter. No accessory muscle use. No wheezing, no crackles. ABDOMEN: Soft, bowel sounds present, nontender, no distention. CENTRAL NERVOUS SYSTEM: Cranial nerves II through XII are grossly intact, nonfocal. EXTREMITIES: Mild pedal edema present. Left lower extremity is slightly warm. LABORATORY DATA: WBC 12, hemoglobin 4, hematocrit 15.4, platelets 424. PT 10.9, INR 1.1. Sodium 141, potassium 3.8, chloride 110, CO2 of 24, BUN 20, creatinine 1.2, serum glucose 100, calcium 8.5, total bilirubin 0.3, AST 9, ALT 17, alkaline phosphatase 111. SARS-CoV-2 PCR negative. ASSESSMENT AND PLAN: This 56-year-old male presents with symptomatic anemia. 1. Symptomatic anemia, shortness of breath with exertion and profound anemia with hemoglobin of 4. Stools were brown in the Emergency Room but Hemoccult positive as per the Emergency Room. The patient says once in a while he gets black stool. Not on any anticoagulation, just was started on Eliquis last night for deep venous thrombosis and the patient says does not take any [id number] pain medications. Blood consent is obtained. We will transfuse 3 units of packed red blood cells for now. Admitted to telemetry floor, keep him n.p.o., gentle fluids. Consult GI. Place him on Protonix drip and closely monitor. 2. Acute deep venous thrombosis. Diagnosed yesterday with left lower extremity deep venous thrombosis, was started on Eliquis, which we will be holding because of the symptomatic significant anemia. We will also get a CT of the chest to rule out any pulmonary embolism and also echocardiogram and consult vascular surgery for possible inferior vena cava filter. Vascular surgery notified. The patient needs workup for his unprovoked deep venous thrombosis. 3. Iron-deficiency. Iron studies done as an outpatient. 4. Deep venous thrombosis prophylaxis: Could not place sequential compression devices because of acute deep venous thrombosis, could not place on anticoagulation because of gastrointestinal bleed and anemia. DISPOSITION: Admit to tele floor. Social service to help with discharge plan. Job ID: [id number] [facility]
--- NOTE | 2021-09-16 10:28 | Consultation ---
Date of Consultation September 16, 2021 Assessment & Plan (1) DVT (deep venous thrombosis): Pt with LLE DVT and PE, and GI bleed with hgb of 4. Pt discussed with Dr Up, recommends pt undergo IVC filter insertion today. Procedure, risks, benefits, and alternatives discussed with pt at Dr Up's request. Pt is agreeable. Pt is also present today. Will see in office in 3 months to discuss possible removal. Patient was seen, examined, and chart reviewed. Agree with exam and treatment plan of the Vascular PA. History of Present Illness Reason for Consultation: DVT, PE, GI bleed Attending Physician: Deepak Moreau MD History of Present Illness 56 yo m without significant medical hx, admitted with LLE DVT, PE, and GI bleeding, seen in consultation today for IVC filter insertion. Pt states he was in normal state of health, but noted LLE discomfort and swelling that began about 1 week ago. Saw his PCP, who ordered a venous US and bloodwork, which demonstrated LLE DVT and hgb of 4. Pt was told to go to ED, and had CTA chest this am which demonstrated R PE's. Pt admits fatigue, mild BAEZ, and severe edema of LLE. Denies GALLO, fever, chest pain, recent illness, abd pain, N/V, rest pain, claudication, other complaints. Pt denies recent trauma, surgery, or travel. Allergies Allergy/AdvReac Type Severity Reaction Status Date / Time No Known Allergies Allergy Unverified 09/16/21 08:17 Home Medications Medication Instructions Recorded Confirmed Type apixaban 5 mg tablet (Eliquis) 5 mg PO BID 09/16/21 09/16/21 History benzonatate 100 mg capsule 100 mg PO TID 09/16/21 09/16/21 History levocetirizine 5 mg tablet 5 mg PO DAILY 09/16/21 09/16/21 History omeprazole 20 mg capsule,delayed 20 mg PO DAILY 09/16/21 09/16/21 History release Patient History Medical History (Updated 09/16/21 @ 10:38 by Susy Verde PA-C) DVT (deep venous thrombosis) No known health problems Surgical History No history of previous surgery Family History Other No history of previous surgery No known health problems Social History Smoking Status: Never smoker Do You Dip or Chew Tobacco: Yes; Hx Alcohol Use: No Hx Substance Use: No Preferred Language: Bengali Communication Ability: Effective Can Cleaner Required: No Beliefs That Will Affect Care: None marital status: Current Living Situation: Spouse Other Information That Helps Us Care for You: No Feels Safe at Home: Yes Safety Concerns: Feels Safe At This Time Assistive Devices: None Review of Systems Review of Systems: All systems reviewed & are unremarkable except as noted in HPI & below Physical Exam Constitutional: WD/WN, vitals as above (pale) ENMT: Ears: no hearing impairment Neck: trachea midline Respiratory: normal respiratory effort, lungs clear to auscultation Auscultation: + diminished lung sounds Cardiovascular: Rate/Rhythm: regular rate and regular rhythm Vessels: femoral pulses present, posterior tibial pulses present, dorsalis pedis pulses present and radial pulses present Extremities: normal capillary refill, + pedal edema and + edema (LLE +4 pitting) Gastrointestinal (Abdomen): Inspection/Auscultation: normal bowel sounds; abdomen not distended Percussion/Palpation: abdomen soft; abdomen nontender Musculoskeletal: no cyanosis or clubbing, extremities motor strength 5/5 Skin: no rashes, warm and dry Neurologic: moves all extremities and awake; no focal motor deficits and not confused Psychiatric: A+Ox3, euthymic affect Results & Data ([facility]) Vital Signs (Past 12 Hours) Vital Signs Temp Pulse Pulse Resp BP BP Pulse Ox 09/16/21 10:08 36.9 C 83 20 120/70 99 09/16/21 09:08 36.7 C 92 H 24 126/73 99 09/16/21 09:00 36.7 C 78 24 125/81 98 09/16/21 08:23 36.7 C 92 H 24 128/80 98 09/16/21 08:20 36.7 C 89 20 119/74 100 09/16/21 08:08 36.7 C 91 H 18 119/74 99 09/16/21 03:31 37.1 C 102 H 20 131/72 98
[2021-09-16] MEDS ORDERED: FUROSEMIDE INJ 20 MG/2 ML VIAL IV ONE (10:30)
[2021-09-16] MEDS ORDERED: ceFAZolin 2000MG 2,000 MG/15 ML SYR IV ONE (10:40)
[2021-09-16] MEDS: PATIENT'S ALLERGY INFO NEEDS ENTERED SCH ×2 (11:07→11:10)
[2021-09-16] MEDS ORDERED: MIDAZOLAM HCL 1 MG/ML 2ML VIAL ONE (12:54)
[2021-09-16] MEDS ORDERED: fentaNYL citrate 100 MCG/2 ML VIAL ONE (12:54)
[2021-09-16] MEDS ORDERED: ceFAZolin 2,000 MG/15 ML IV PUSH IV ONE (12:57)
[2021-09-16] MEDS ORDERED: LIDOCAINE 1% LOCAL 20 ML VIAL INJ ONE (13:35)
[2021-09-16] MEDS ORDERED: VISIPAQUE IV PRN (13:35)
--- NOTE | 2021-09-16 13:41 | Operative Report ---
Post Operative Report Pre & Post Diagnosis Operation Date: 09/16/21 12:20 Pre-Op Diagnosis: Deep Vein Thrombosis Contraindication to Anticoagulation Post-Op Diagnosis: Deep Vein Thrombosis, Contraindication to Anticoagulation Operation Date: 09/19/21 16:00 <No data on this case meets the specified criteria> I identified the patient and participated in the time-out.: Yes Procedure Operation Date: 09/16/21 12:20 Actual Procedures p Insertion of Vena Cava Filter Right Jugular Vein Approach, Ultrasound Localization of Right Jugular Vein, Fluoroscopy for Positioning, Moderate Sedation [id number](Right) - Ming Up MD Operation Date: 09/19/21 16:00 <No data on this case meets the specified criteria> Surgeon Ming Up MD Learning Coordinator none Estimated Blood Loss 2 Findings Consistent with Post-Op Diagnosis Specimens none Anesthesia Type RN Sedation Complications none Disposition Accompanied Patient To Recovery: No Disposition: Recovery Room Indications This is a 56-year-old gentleman who had a diagnosis of acute deep venous thrombosis with pulmonary emboli. He was found to have a hemoglobin of 3.5. He is to undergo work-up for anemia. At this point recommended a filter to keep him off anticoagulation until he underwent endoscopy. I have discussed the risks options and benefits of the procedure with the patient. The patient understands the risks options and benefits and agrees to the procedure. Description of Procedure The patient was brought to the angio suite and placed in the supine position. The patient was identified and a timeout performed. The right side of the neck was prepped and draped in the usual fashion. The right internal jugular vein was located with ultrasound. It was patent, compressed easily, and had no filling defects. The vein was then punctured under ultrasound visualization. A guidewire was then passed centrally into the inferior vena cava under fluo roscopic guidance. The puncture site was then dilated and the filter sheath inserted. It was passed to the infra renal vena cava. A venacavagram was done which showed no cava clot and an acceptable size. The renal veins were identified. The filter was then passed through the sheath and deployed in the infra renal vena cava in an upright position. Satisfied with the positioning of the filter, the sheath was removed. Pressure was applied to the puncture site. Adequate hemostasis was obtained and a sterile dressing was applied. The patient left the operation room in satisfactory condition and tolerated the procedure well. All needle and sponge counts were correct at the end of the procedure. I attest to the content of the Intraoperative Record and any orders documented therein. Any exceptions are noted below.
--- NOTE | 2021-09-16 13:46 | Electrocardiogram Report ---
Test Reason : Blood Pressure : / mmHG Vent. Rate : 094 BPM Atrial Rate : 094 BPM P-R Int : 134 ms QRS Dur : 092 ms QT Int : 374 ms P-R-T Axes : 013 055 087 degrees QTc Int : 467 ms Normal sinus rhythm Nonspecific ST and T wave abnormality Abnormal ECG No previous ECGs available Confirmed by Justin Pittman ([id number]) on 09/16/2021 1:45:39 PM Referred By: Darrius Sandoval Confirmed By:Justin Pittman
--- NOTE | 2021-09-16 15:21 | Communication Note ---
Date of Service: September 16, 2021 Follow-up for profound anemia, possible GI bleed, left lower extremity DVT Profound anemia likely secondary to GI bleed Hemoglobin 4, 3 units of packed RBCs ordered Repeat hemoglobin pending N.p.o. Protonix drip GI consulted Left lower extremity DVT Bilateral PE CT angiogram of the chest:Segmental and subsegmental bilateral pulmonary emboli are noted without evidence of right heart strain. Status post IVC filter placement Other diagnoses and plan of care per Dr. Lorenzo's notes Deepak Moreau MD
[2021-09-16 18:00] LABS: Hematocrit (blood only) 25.2 % (42-52); Hemoglobin 7.5 g/dL (14.0-18.0)
[2021-09-17] MEDS: SODIUM CHLORIDE 0.9% 1000ML 1,000 ML IV SCH ×3 (01:00→21:19)
[2021-09-17] MEDS: PANTOprazole 40 MG in DEXTROSE 5% 100 ML IV SCH ×4 (04:09→19:13)
[2021-09-17 05:53] LABS: BUN Creatinine Ratio 12.3 (10-20); Calcium 7.7 mg/dl (8.5-10.1); Creatinine Clr Calc Pharmacy 68.2 ml/min; Est GFR (African American) 68.6 ml/min; Est GFR (Non-African American) 59.2 ml/min; Magnesium 2.4 mg/dl (1.8-2.4); Potassium 3.5 mmol/L (3.5-5.1)
[2021-09-17 06:13] LABS: Anisocytosis Present; Basophils # (auto) 0.01 K/uL (0-0.2); Basophils % (auto) 0.1 %; Eosinophils # (auto) 0.17 K/uL (0-0.5); Eosinophils % (auto) 2.4 %; Hematocrit (blood only) 23.4 % (42-52); Hemoglobin 6.9 g/dL (14.0-18.0); Hypochromasia Present; Immature Granulocytes # (auto) 0.02 K/uL (0.00-0.02); Immature Granulocytes % (auto) 0.3 %; Lymphocytes # (auto) 0.69 K/uL (1.2-3.4); Lymphocytes % (auto) 9.8 %; Mean Corpuscular Hemoglobin 21.8 pg (25-34); Mean Corpuscular Hgb Conc 29.5 g/dL (32-36); Mean Corpuscular Volume 73.8 fL (80-100); Mean Platelet Volume 9.4 fL (7.4-10.4); Monocytes # (auto) 0.62 K/uL (0.11-0.59); Monocytes % (auto) 8.8 %; Neutrophils # (auto) 5.51 K/uL (1.4-6.5); Neutrophils % (auto) 78.6 %; Ovalocytes 1+; Platelet Count 277 K/uL (130-400); RDW Coefficient of Variation 26.1 % (11.5-14.5); RDW Standard Deviation 67.8 fL (36.4-46.3); Red Blood Count 3.17 M/uL (4.7-6.1); White Blood Count 7.02 K/uL (4.8-10.8)
[2021-09-17] MEDS ORDERED: SODIUM CHLORIDE 0.9% 250 ML IV PRN (06:18)
[2021-09-17 06:44] LABS: Blood Urine Negative (Negative)
[2021-09-17] MEDS ORDERED: diphenhydrAMINE Capsule 25 MG CAP PO ONE (07:00)
[2021-09-17] MEDS ORDERED: ACETAMINOPHEN 325 MG TAB PO ONE (07:00)
[2021-09-17 13:15] LABS: Hematocrit (blood only) 26.7 % (42-52); Hemoglobin 7.9 g/dL (14.0-18.0)
--- NOTE | 2021-09-17 15:39 | CT Scan Report ---
CT abd pelvis wo con CLINICAL HISTORY: GI bleed, anemia COMPARISON STUDY: CTA of the chest from 09/16/2021 CT DOSE: 864.06 mGycm TECHNIQUE: Standard CT of the Abdomen and Pelvis was performed without IV contrast. The patient did not receive oral contrast. A dose lowering technique was utilized adhering to the principles of ZENA Khan. FINDINGS: Lung base: There is mild right basilar atelectasis. The lung bases are otherwise clear. Abdominal cavity: There is no evidence for abdominal mass, adenopathy or ascites. Liver: The liver is homogeneous in attenuation on these limited noncontrast images.. Spleen: The spleen is homogeneous in attenuation on these limited noncontrast images. Pancreas: The pancreas is homogeneous in attenuation on these limited noncontrast images. Gall Bladder: The gallbladder is well distended with evidence of cholelithiasis. There is no CT evide nce for acute cholecystitis. Adrenal glands: The adrenal glands are normal in size and attenuation on these limited noncontrast im ages. Kidneys: The kidneys are homogeneous in attenuation on these limited noncontrast images. There is no evidence for gross renal mass, calculus or hydronephrosis bilaterally. Bowel: There is a very large hiatal hernia with majority of the stomach herniated into the posterior chest. The remaining bowel loops are normally placed within the abdomen and pelvis without evidence f or dilatation or obstruction. There is no evidence for mass lesion. There are no inflammatory changes present. There is no evidence for free air. The appendix is not visualized. There are bilateral ingu inal hernias containing peritoneal fat. No bowel loop herniation is seen. Bladder: There is no evidence for focal bladder wall thickening, calculus or diverticulum. There is c ontrast seen within the bladder from previous CTA chest. : There is no evidence for pelvic mass or adenopathy. Vasculature: There is no evidence for focal aneurysmal dilatation of the abdominal aorta. IVC filter is in place. Osseous structures: There is no acute osseous pathology. IMPRESSION: 1. No acute intra-abdominal or pelvic abnormality on these limited noncontrast images. 2. Very large hiatal hernia. 3. Cholelithiasis with no CT evidence for acute cholecystitis. 4. Additional nonacute findings as delineated above. ACT 112: Negative or not required by law. Electronically signed by: Ziggy Lizarraga M.D. 09/17/2021 3:38 PM
--- NOTE | 2021-09-17 18:40 | Hospitalist Progress Note ---
Date of Service September 17, 2021 Assessment & Plan (1) Anemia: (2) Acute pulmonary embolism: (3) DVT (deep venous thrombosis): Plan: ASSESSMENT AND PLAN: This 56-year-old male presents with symptomatic anemia. 1. Profound anemia, likely secondary to underlying GI bleed Hemoglobin decreased to 6.9 this morning, additional 1 unit of packed RBCs ordered Hemoglobin up to 7.9 Continue monitoring hemoglobin Status post IVC filter placement Holding anticoagulation at this point secondary to possible ongoing GI bleed Currently on n.p.o., Protonix drip 2. Acute pulmonary embolism and deep venous thrombosis. CT chest:Segmental and subsegmental pulmonary emboli of the right lower lobe and lingula. No central pulmonary bullae or right heart strain. Echocardiogram: EF 6065%, left to, motion is normal, normal LV relaxation, no significant valvular pathology 3. Iron-deficiency. Iron studies done as an outpatient. 4. Deep venous thrombosis prophylaxis: Could not place sequential compression devices because of acute deep venous thrombosis, could not place on anticoagulation because of gastrointestinal bleed and anemia. DISPOSITION:Pending Anticipate discharge to home when medically stable Admission and Anticipated Discharge Date Admission Date: September 16, 2021 Subjective Follow-up for profound anemia, GI bleed, acute PE and DVT, etc. Seen resting in bed, comfortable, watching TV, not in distress States he feels fine overall Denies shortness of breath, chest pain, dizziness, headache No abdominal pain, nausea or vomiting No BM since admission No other symptoms Review of Systems Review of Systems: all noted and negative except for above Physical Exam Physical Exam: General- oriented x 2, not in distress, speaks in sentences w ith no effort or accessory muscle use Eyes- anicteric Neck- no JVD Lungs- clear breath sounds bilaterally, no rales/wheezes Heart- normal rate, regular rhythm; no murmurs Abdomen- normal bowel sounds, nondistended, soft, nontender Extremities- no pretibial edema, no calf tenderness Neuro- alert, oriented x 3; no gross focal neurologic deficits Skin- warm & dry Results & Data Results & Data ([facility]) Vital Signs (Past 12 Hours) Vital Signs Temp Pulse Pulse Resp BP BP Pulse Ox 09/17/21 15:57 36.8 C 79 18 115/74 96 09/17/21 12:11 36.7 C 09/17/21 11:30 37.1 C 81 79 22 122/68 112/71 96 09/17/21 10:30 36.7 C 78 18 111/68 96 09/17/21 10:00 36.8 C 78 16 117/69 97 09/17/21 09:45 36.9 C 85 16 114/74 95 09/17/21 09:44 36.9 C 85 16 114/74 95 09/17/21 09:26 36.7 C 96 H 18 114/67 96 09/17/21 08:00 76 09/17/21 07:59 36.8 C 87 18 116/78 96 all noted and reviewed including below (1) Anemia Anemia type: unspecified type Qualified Code(s): D64.9 - Anemia, unspecified (2) DVT (deep venous thrombosis) Affected thrombotic vein of extremity: unspecified lower extremity distal vein Chronicity: acute DVT location: lower extremity Laterality: left Qualified Code(s): I82.4Z2 - Acute embolism and thrombosis of unspecified deep veins of left distal lower extremity
[2021-09-18] MEDS: PANTOprazole 40 MG in DEXTROSE 5% 100 ML IV SCH ×5 (00:18→20:17)
[2021-09-18] MEDS: SODIUM CHLORIDE 0.9% 1000ML 1,000 ML IV SCH ×2 (08:37→20:43)
[2021-09-18 08:54] LABS: Basophils # (auto) 0.02 K/uL (0-0.2); Basophils % (auto) 0.3 %; Eosinophils # (auto) 0.28 K/uL (0-0.5); Eosinophils % (auto) 4.1 %; Hematocrit (blood only) 28.4 % (42-52); Hemoglobin 8.6 g/dL (14.0-18.0); Immature Granulocytes # (auto) 0.03 K/uL (0.00-0.02); Immature Granulocytes % (auto) 0.4 %; Lymphocytes # (auto) 0.78 K/uL (1.2-3.4); Lymphocytes % (auto) 11.5 %; Mean Corpuscular Hgb Conc 30.3 g/dL (32-36); Mean Corpuscular Volume 75.9 fL (80-100); Mean Platelet Volume 9.3 fL (7.4-10.4); Monocytes # (auto) 0.44 K/uL (0.11-0.59); Monocytes % (auto) 6.5 %; Neutrophils # (auto) 5.21 K/uL (1.4-6.5); Neutrophils % (auto) 77.2 %; Nucleated RBC # (auto) 0.04 K/uL (0-0); Nucleated RBC % (auto) 0.6 %; Platelet Count 268 K/uL (130-400); RDW Standard Deviation 70.1 fL (36.4-46.3); Red Blood Count 3.74 M/uL (4.7-6.1); White Blood Count 6.76 K/uL (4.8-10.8)
[2021-09-18 09:16] LABS: Poikilocytosis Present
[2021-09-18 09:17] LABS: Anisocytosis Present; BUN Creatinine Ratio 10.3 (10-20); Calcium 7.8 mg/dl (8.5-10.1); Creatinine Clr Calc Pharmacy 67.4 ml/min; Est GFR (African American) 73.9 ml/min; Est GFR (Non-African American) 63.8 ml/min; Potassium 3.5 mmol/L (3.5-5.1)
[2021-09-18] MEDS ORDERED: LAVAGE SOLUTION 4000ML PO SCH (17:00)
--- NOTE | 2021-09-18 18:19 | Hospitalist Progress Note ---
Date of Service September 18, 2021 Assessment & Plan (1) Anemia: (2) Acute pulmonary embolism: (3) DVT (deep venous thrombosis): Plan: ASSESSMENT AND PLAN: This 56-year-old male presents with symptomatic anemia. 1. Profound anemia, likely secondary to underlying GI bleed 09/17 Hemoglobin decreased to 6.9 this morning, additional 1 unit of packed RBCs ordered Hemoglobin up to 7.9 09/18 Hg stable , 8.6 no melena/hematochezia Status post IVC filter placement Holding anticoagulation at this point secondary to possible ongoing GI bleed Currently on n.p.o., Protonix drip Prep for colonoscopy tonight, NPO after midnight 2. Acute pulmonary embolism and deep venous thrombosis. CT chest:Segmental and subsegmental pulmonary emboli of the right lower lobe and lingula. No central pulmonary bullae or right heart strain. Echocardiogram: EF 6065%, left to, motion is normal, normal LV relaxation, no significant valvular pathology -- on room air BP stable asymptomatic -- s/p IV filter placement 09/16/21 will discuss with GI re: restarting anticoagulation after EGD 3. Iron-deficiency. Iron studies done as an outpatient. 4. Deep venous thrombosis prophylaxis: Could not place sequential compression devices because of acute deep venous thrombosis, could not place on anticoagulation because of gastrointestinal bleed and anemia. DISPOSITION:Pending Anticipate discharge to home when medically stable plan of care discussed with patient in detail and at length all questions answered he is understanding, agreeable, comfortable with the plan of care Admission and Anticipated Discharge Date Admission Date: September 16, 2021 Subjective ff up for acute PE/DVT, GI bleed, etc seen resting in bed, comfortable, watching tv states he feels fine overall no dyspnea, chest pain, dizziness, leg pain no abdominal pain ,nausea/vomiting tolerating liquid diet well no BM since admission denies signs of bleeding no other symptoms Review of Systems Review of Systems: all noted and negative except for above Physical Exam Physical Exam: General- oriented x 3, not in distress, speaks in sentences with no effort or accessory muscle use Eyes- anicteric Neck- no JVD Lungs- clear breath sounds, no crackles, no wheezing bilaterally Heart- normal rate, regular rhythm; no murmurs Abdomen- normal bowel sounds, nondistended, soft, nontender Extremities- mild edema of the LLE, no calf tenderness Neuro- alert, oriented x 3; no gross focal neurologic deficits Skin- warm & dry Results & Data Results & Data ([facility]) Vital Signs (Past 12 Hours) Vital Signs Temp Pulse Pulse Resp BP Pulse Ox 09/18/21 16:00 36.8 C 94 H 18 117/78 95 09/18/21 11:47 37.1 C 95 H 16 147/79 H 95 09/18/21 08:00 77 09/18/21 07:46 36.2 C L 96 H 18 130/79 95 all noted and reviewed including below (1) Anemia Anemia type: unspecified type Qualified Code(s): D64.9 - Anemia, unspecified (2) DVT (deep venous thrombosis) Affected thrombotic vein of extremity: unspecified lower extremity distal vein Chronicity: acute DVT location: lower extremity Laterality: left Qualified Code(s): I82.4Z2 - Acute embolism and thrombosis of unspecified deep veins of left distal lower extremity
[2021-09-19] MEDS: PANTOprazole 40 MG in DEXTROSE 5% 100 ML IV SCH ×5 (01:48→22:14)
[2021-09-19 06:21] LABS: Basophils # (auto) 0.01 K/uL (0-0.2); Basophils % (auto) 0.1 %; Eosinophils # (auto) 0.38 K/uL (0-0.5); Eosinophils % (auto) 5.6 %; Hematocrit (blood only) 26.5 % (42-52); Hemoglobin 7.8 g/dL (14.0-18.0); Immature Granulocytes # (auto) 0.01 K/uL (0.00-0.02); Immature Granulocytes % (auto) 0.1 %; Lymphocytes # (auto) 0.82 K/uL (1.2-3.4); Lymphocytes % (auto) 12.1 %; Mean Corpuscular Hemoglobin 22.5 pg (25-34); Mean Corpuscular Hgb Conc 29.4 g/dL (32-36); Mean Corpuscular Volume 76.4 fL (80-100); Mean Platelet Volume 9.8 fL (7.4-10.4); Monocytes % (auto) 10.4 %; Neutrophils # (auto) 4.84 K/uL (1.4-6.5); Neutrophils % (auto) 71.7 %; Platelet Count 276 K/uL (130-400); RDW Coefficient of Variation 26.6 % (11.5-14.5); RDW Standard Deviation 71.3 fL (36.4-46.3); Red Blood Count 3.47 M/uL (4.7-6.1); White Blood Count 6.76 K/uL (4.8-10.8)
[2021-09-19 07:05] LABS: Anisocytosis Present; BUN Creatinine Ratio 7.2 (10-20); Calcium 7.7 mg/dl (8.5-10.1); Creatinine Clr Calc Pharmacy 94.3 ml/min; Est GFR (Non-African American) 89.8 ml/min; Poikilocytosis Present; Potassium 3.7 mmol/L (3.5-5.1)
[2021-09-19] MEDS: SODIUM CHLORIDE 0.9% 1000ML 1,000 ML IV SCH ×2 (08:12→21:04)
--- NOTE | 2021-09-19 08:15 | Gastroenterology Progress Note ---
Date of Service September 19, 2021 Assessment & Plan (1) Anemia: Plan: EGD, colonoscopy today. Further recommendations to follow. Admission and Anticipated Discharge Date Admission Date: September 16, 2021 Supervising Physician Co-Signing Physician Notes ATtg add: No further bleeding overnight. Issues with cscopy prep. Plan EGD/cscopy today. Subjective 56 year old male w SOB x 2 wks who was admitted on 09/16 after OP labs showed HGB 4, microscopic anemia, pt with outpatient labs show iron deficiency w/ CT imaging showingbilateral pulmonary emboli, large HH w/ esophageal wall thickening. On Eliquis (only took one dose thus far), held on admission. Review of Systems Review of Systems: ROS: Gen: Denies weakness, fevers, weight loss Eyes: No eye redness, or pain, no recent vision changes Resp: + SOB - resolved since received transfussions; no cough Cardio: No palpitations/irregular beats, no chest pain GI: No abdominal pain, no nausea/vomiting : Denies pain on urination Skin: No jaundice, itching or new rashes Physical Exam Constitutional: well developed and cooperative Eyes: PERRL, conjunctivae normal, anicteric sclerae Respiratory: normal respiratory effort, lungs clear to auscultation Cardiovascular: RRR, no murmur, no edema Gastrointestinal (Abdomen): normal bowel sounds, soft, nontender, no hepatosplenomegaly Skin: no rashes, warm and dry normal turgor and + pallor Neurologic: PERRL, EOMI, accommodation nl, no face palsy, no dysarthria awake; not confused Psychiatric: A+Ox3, euthymic affect Orientation: alert, oriented x 3 and cooperative Results & Data ([facility]) Vital Signs (Past 12 Hours) Vital Signs Temp Pulse Pulse Resp BP BP Pulse Ox 09/19/21 07:15 36.8 C 84 16 127/86 95 09/19/21 03:44 36.9 C 90 18 138/80 96 09/19/21 00:22 101 H 09/18/21 23:26 36.6 C 80 18 121/71 96 Laboratory Results Hb 4/0 + 4 units of RBCs ->7.8 BUN 20 on arrival, normal since then. Diagnostic Findings Non contrast CTAP 09/16/21: 1. No acute intra-abdominal or pelvic abnormality on these limited noncontrast images. 2. Very large hiatal hernia. 3. Cholelithiasis with no CT evidence for acute cholecystitis. 4. Additional nonacute findings as delineated above. CT Chest 09/16/21: 1. Study is degraded by respiratory motion artifact. Segmental and subsegmental bilateral pulmonary emboli are noted without evidence of right heart strain. 2. Trace pleural effusions. 3. Cardiomegaly with mild pulmonary edema. 4. Groundglass densities of the lingula with a 2.6 cm subpleural consolidative density suggestive of pneumonia versus pulmonary infarct. 5. Large hiatal hernia with mild diffuse esophageal wall thickening. (1) Anemia Anemia type: unspecified type Qualified Code(s): D64.9 - Anemia, unspecified
[2021-09-19] MEDS ORDERED: LIDOCAINE 2% 2 ML VIAL/AMP(20MG/ML) INFIL ONE (08:36)
[2021-09-19] MEDS ORDERED: PROPOFOL IV EMULSION 10 MG/ML 20 ML VIAL IV ONE ×3 (08:36)
--- NOTE | 2021-09-19 08:41 | Anesthesiology Consultation ---
Date of Service September 19, 2021 Assessment & Plan (1) Encounter for pre-operative examination: Chart Review Chart Review: Acceptable Risk for Surgery History Surgery Operation Date: 09/16/21 12:20 Proposed Procedures p Insertion of Vena Cava Filter - Ming Up MD Operation Date: 09/19/21 16:00 Proposed Procedures p Colonscopy EGD Dr Falcon - Maynor Falcon MD Height/Weight Height: 5 ft 6 in Weight: 94 kg Allergies Allergy/AdvReac Type Severity Reaction Status Date / Time No Known Allergies Allergy Unverified 09/16/21 08:17 Medications Home Medications Medication Instructions Recorded Confirmed Last Taken apixaban 5 mg tablet (Eliquis) 5 mg PO BID 09/16/21 09/16/21 09/15/21 benzonatate 100 mg capsule 100 mg PO TID 09/16/21 09/16/21 09/15/21 levocetirizine 5 mg tablet 5 mg PO DAILY 09/16/21 09/16/21 09/15/21 omeprazole 20 mg capsule,delayed 20 mg PO DAILY 09/16/21 09/16/21 09/15/21 release Active Medications Generic Name Dose Route Start Last Admin Trade Name Freq PRN Reason Stop Dose Admin Acetaminophen 650 mg 09/16/21 07:23 09/16/21 19:32 Acetaminophen 325 Mg Tab PO 10/16/21 07:22 650 mg Q4H PRN Administration Pain or Fever Sodium Chloride 1,000 mls @ 80 mls/hr 09/16/21 07:23 09/19/21 08:12 Nss 1000ml IV 10/16/21 07:22 80 mls/hr .[id number] AXEL Administration Pantoprazole Sodium 40 mg/ 100 mls @ 20 mls/hr 09/16/21 08:00 09/19/21 06:42 Dextrose IV 10/16/21 07:59 8 mg/hr Q5H AXEL 20 mls/hr Administration 8 MG/HR Iodixanol 15 ml 09/16/21 13:35 09/16/21 13:36 Visipaque IV 09/20/21 13:34 15 ml UD PRN Administration Interaction Checking NPO Date Last Intake of Fluids: 09/15/21 Time Last Intake of Fluids: 22:30 Date Last Intake of Solids: 09/15/21 Time Last Intake of Solids: 18:30 Past Medical History Medical History (Updated 09/19/21 @ 08:44 by Nadeem Esquivel MD) Acute pulmonary embolism Anemia DVT (deep venous thrombosis) Past Family History Family History Other No history of previous surgery No known health problems Past Surgical History Surgical History No history of previous surgery Social History Smoking Status: Never smoker Do You Dip or Chew Tobacco: Yes Hx Alcohol Use: No Hx Substance Use: No substance use type: does not use Physical Exam Vital Signs Last Vital Signs Temp 36.8 C 09/19/21 07:15 Pulse 84 09/19/21 07:15 Resp 16 09/19/21 07:15 BP 127/86 09/19/21 07:15 Pulse Ox 95 09/19/21 07:15 Testing Laboratory Results 09/19/21 06:03 09/19/21 06:03 PT 10.9 Seconds (9.0-12.0) 09/16/21 04:01 INR 1.1 (0.9-1.1) 09/16/21 04:01 Urine Color Yellow 09/16/21 Unknown Urine Appearance Clear (Clear) 09/16/21 Unknown Urine pH 7.0 (4.5-7.5) 09/16/21 Unknown Ur Specific [place] > 1.045 (1.000-1.030) H 09/16/21 Unknown Urine Protein Negative (Negative) 09/16/21 Unknown Urine Glucose (UA) Negative (Negative) 09/16/21 Unknown Urine Ketones Negative (Negative) 09/16/21 Unknown Urine Nitrite Negative (Negative) 09/16/21 Unknown Ur Leukocyte Esterase Negative (Negative) 09/16/21 Unknown Blood Type O Positive 09/16/21 04:01 Antibody Screen NEGATIVE 09/16/21 04:01 Electrocardiogram Date: 09/16/21 Findings: + NSR @ (94) Echocardiogram Date: 09/16/21 EF: 60-65% LV Function: normal Valvular Disease: + no significant valvular disease
--- NOTE | 2021-09-19 09:06 | History & Physical Bridge Note ---
Date of Service September 19, 2021 History & Physical Bridge Note I have examined the patient, reviewed the History & Physical and in the interval since the performance of the History & Physical I have noted the following changes of clinical significance: no changes noted
--- NOTE | 2021-09-19 10:17 | GI REPORT ---
Patient Name: Fidel Murguia Procedure Date: 09/19/2021 9:12 AM Date of : 1965 Admit Type: Inpatient Age: 56 Gender: Male Attending MD: Maynor Falcon MD Procedure: Upper GI endoscopy Providers: Maynor Falcon MD Referring MD: Darrius Sandoval Indications: Iron deficiency anemia Medicines: See the Anesthesia note for documentation of the administered medications Complications: No immediate complications. Estimated Blood Loss: Estimated blood loss: none. Procedure: Pre-Anesthesia Assessment: - ASA Grade Assessment: III - A patient with severe systemic disease. After obtaining informed consent, the endoscope was passed under direct vision. Throughout the procedure, the patient's blood pressure, pulse, and oxygen saturations were monitored continuously. The Scope was introduced through the mouth, and advanced to the fourth part of duodenum. The upper GI endoscopy was accomplished without difficulty. The patient tolerated the procedure well. Findings: The examined esophagus was normal. The Z line was at 36 cm. There was a very large hiatal hernia, involving approximately 1/2 of the stomach. There was a 5 mm clean based ulcer in the hernia sac, in the high body of the stomach. The remainder of the stomach was normal. The duodenum was normal. Biopsies taken from stomach ulcer. Impression: Large hiatal hernia. Clean based ulcer in the hernia sac. Recommendation: - Discharge patient to floor. - Check stool for Hp. - 40 mg BID oral PPI twice daily. - Rescope 8 weeks for ulcer resolution. - Surgery consult for hernia repair. Maynor Falcon M.D. Maynor Falcon MD 09/19/2021 10:16:38 AM This report has been signed electronically. Note Initiated On: 09/19/2021 9:12 AM Number of Addenda: 0 I attest to the content of the Intraoperative Record and orders documented therein, exceptions below {[id number]}
--- NOTE | 2021-09-19 10:19 | GI REPORT ---
Patient Name: Fidel Murguia Procedure Date: 09/19/2021 9:12 AM Date of : 1965 Admit Type: Inpatient Age: 56 Gender: Male Attending MD: Maynor Falcon MD Procedure: Colonoscopy Providers: Maynor Falcon MD Referring MD: Darrius Sandoval Indications: Iron deficiency anemia Medicines: See the Anesthesia note for documentation of the administered medications Complications: No immediate complications. Estimated Blood Loss: Estimated blood loss: none. Procedure: Pre-Anesthesia Assessment: - ASA Grade Assessment: III - A patient with severe systemic disease. After I obtained informed consent, the scope was passed under direct vision. Throughout the procedure, the patient's blood pressure, pulse, and oxygen saturations were monitored continuously. The Scope was introduced through the anus and advanced to the terminal ileum. The colonoscopy was performed without difficulty. The patient tolerated the procedure well. The quality of the bowel preparation was poor. Findings: The perianal and digital rectal examinations were normal. Multiple small and large-mouthed diverticula were found in the sigmoid colon. The exam was otherwise without abnormality, although limited by prep quality. Impression: - Preparation of the colon was poor. - Diverticulosis in the sigmoid colon. - The examination was otherwise normal. - No specimens collected. Recommendation: - Discharge patient to floor. - See EGD note for details. Maynor Falcon M.D. Maynor Falcon MD 09/19/2021 10:19:07 AM This report has been signed electronically. Note Initiated On: 09/19/2021 9:12 AM Number of Addenda: 0 I attest to the content of the Intraoperative Record and orders documented therein, exceptions below {[id number]}
--- NOTE | 2021-09-19 10:37 | Anesthesiology Progress Note ---
Date of Service September 19, 2021 Anesthesia Post Procedure Vital Signs Vital Signs: Temp Pulse Pulse Resp BP BP Pulse Ox 09/19/21 10:25 79 16 131/83 98 09/19/21 10:09 85 16 130/77 97 09/19/21 09:53 88 16 121/78 96 09/19/21 09:02 37.1 C 96 H 16 145/90 H 145/90 H 96 09/19/21 08:00 76 09/19/21 07:15 36.8 C 84 16 127/86 95 09/19/21 03:44 36.9 C 90 18 138/80 96 09/19/21 00:22 101 H 09/18/21 23:26 36.6 C 80 18 121/71 96 09/18/21 19:20 36.6 C 84 18 120/76 96 09/18/21 18:14 90 09/18/21 16:00 36.8 C 94 H 18 117/78 95 09/18/21 11:47 37.1 C 95 H 16 147/79 H 95 Transfer of Care Handoff Completed per policy Notes Mental Status: alert / awake / arousable Patient Amnestic to Procedure: Yes Nausea / Vomiting: adequately controlled Pain: adequately controlled Airway Patency, RR, SpO2: stable & adequate BP & HR: stable & adequate Hydration State: stable & adequate Anesthetic Complications: no major complications apparent
[2021-09-19 13:26] LABS: Hematocrit (blood only) 26.8 % (42-52)
--- NOTE | 2021-09-19 14:27 | Hospitalist Progress Note ---
Date of Service September 19, 2021 Assessment & Plan (1) Anemia: (2) Acute pulmonary embolism: (3) DVT (deep venous thrombosis): Plan: ASSESSMENT AND PLAN: This 56-year-old male presents with symptomatic anemia. 1. Profound anemia, likely secondary to underlying GI bleed 09/17 Hemoglobin decreased to 6.9 this morning, additional 1 unit of packed RBCs ordered Hemoglobin up to 7.9 09/19/2021 Hg stable , 8.0 no melena/hematochezia Status post EGD by Dr. Falcon Showing clean-based ulcer in the hernia sac, large hiatal hernia Recommend general surgery recommendation Recommend to hold any anticoagulation for 3 days Status post IVC filter placement Holding anticoagulation at this point, with for 3 days after EGD which is September 19, 2021 Clear liquid diet, advance diet to soft tomorrow Protonix drip transition to Protonix p.o. twice daily Monitor closely 2. Acute pulmonary embolism and deep venous thrombosis. CT chest:Segmental and subsegmental pulmonary emboli of the right lower lobe and lingula. No central pulmonary bullae or right heart strain. Echocardiogram: EF 6065%, left to, motion is normal, normal LV relaxation, no significant valvular pathology -- on room air BP stable asymptomatic -- s/p IV filter placement 09/16/21 3. Iron-deficiency. Iron studies done as an outpatient. 4. Deep venous thrombosis prophylaxis: Could not place sequential compression devices because of acute deep venous thrombosis Status post IVC filter placement DISPOSITION:Pending Anticipate discharge to home when medically stable plan of care discussed with patient in detail and at length all questions answered he is understanding, agreeable, comfortable with the plan of care Admission and Anticipated Discharge Date Admission Date: September 16, 2021 Subjective Follow-up for profound anemia, GI bleed, acute PE and DVT, etc. Status post EGD this morning Seen resting in bed, watching TV, comfortable, not in distress No abdominal pain, nausea vomiting, fevers or chills Tolerating clear liquid diet well Had BMs with colon prep yesterday, black to green stools noted Still with no chest pain, shortness of breath, palpitations, dizziness, headache No leg pain No other symptoms Review of Systems Review of Systems: all noted and negative except for above Physical Exam Physical Exam: General- oriented x 3, not in distress, speaks in sentences with no effort or accessory muscle use Eyes- anicteric Neck- no JVD Lungs- clear to auscultation bilaterally, no crackles or wheezing Heart- normal rate, regular rhythm; no murmurs Abdomen- normal bowel sounds, nondistended, soft, no tenderness in all quadrants Extremities-trace pretibial edema, no calf tenderness Neuro- alert, oriented x 3; no gross focal neurologic deficits Skin- warm & dry Results & Data Results & Data ([facility]) Vital Signs (Past 12 Hours) Vital Signs Temp Pulse Pulse Resp BP BP Pulse Ox 09/19/21 10:45 36.5 C 82 18 147/69 H 94 09/19/21 10:25 79 16 131/83 98 09/19/21 10:09 85 16 130/77 97 09/19/21 09:53 88 16 121/78 96 09/19/21 09:02 37.1 C 96 H 16 145/90 H 145/90 H 96 09/19/21 08:00 76 09/19/21 07:15 36.8 C 84 16 127/86 95 09/19/21 03:44 36.9 C 90 18 138/80 96 all noted and reviewed including below (1) DVT (deep venous thrombosis) Affected thrombotic vein of extremity: unspecified lower extremity distal vein Chronicity: acute DVT location: lower extremity Laterality: left Qualified Code(s): I82.4Z2 - Acute embolism and thrombosis of unspecified deep veins of left distal lower extremity (2) Anemia Anemia type: unspecified type Qualified Code(s): D64.9 - Anemia, unspecified
[2021-09-19] MEDS ORDERED: IRON SUCROSE 150 MG in 0.9 % SODIUM CHLORIDE 100 ML IV ONE (15:00)
[2021-09-19] MEDS: FEXOFENADINE HCL 180 MG TAB PO SCH (18:02)
[2021-09-19] MEDS: FLUTICASONE PROPIONATE NA SPR 16 GM BTL SCH (21:05)
[2021-09-20] MEDS: PANTOprazole 40 MG in DEXTROSE 5% 100 ML IV SCH ×2 (03:10→07:34)
[2021-09-20 05:59] LABS: Basophils # (auto) 0.02 K/uL (0-0.2); Basophils % (auto) 0.3 %; Eosinophils # (auto) 0.37 K/uL (0-0.5); Eosinophils % (auto) 6.1 %; Hematocrit (blood only) 26.9 % (42-52); Immature Granulocytes # (auto) 0.01 K/uL (0.00-0.02); Immature Granulocytes % (auto) 0.2 %; Lymphocytes # (auto) 0.89 K/uL (1.2-3.4); Lymphocytes % (auto) 14.7 %; Mean Corpuscular Hemoglobin 22.9 pg (25-34); Mean Corpuscular Hgb Conc 29.7 g/dL (32-36); Mean Corpuscular Volume 76.9 fL (80-100); Mean Platelet Volume 9.7 fL (7.4-10.4); Monocytes # (auto) 0.48 K/uL (0.11-0.59); Monocytes % (auto) 7.9 %; Neutrophils # (auto) 4.28 K/uL (1.4-6.5); Neutrophils % (auto) 70.8 %; Platelet Count 290 K/uL (130-400); White Blood Count 6.05 K/uL (4.8-10.8)
[2021-09-20 06:24] LABS: Hypochromasia Present; Polychromasia 1+
[2021-09-20 06:37] LABS: Calcium 8.1 mg/dl (8.5-10.1); Creatinine Clr Calc Pharmacy 96.6 ml/min; Est GFR (African American) 112.1 ml/min; Est GFR (Non-African American) 96.7 ml/min; Potassium 3.3 mmol/L (3.5-5.1)
[2021-09-20] MEDS: FLUTICASONE PROPIONATE NA SPR 16 GM BTL SCH ×2 (07:35→20:30)
[2021-09-20] MEDS: FEXOFENADINE HCL 180 MG TAB PO SCH (07:35)
[2021-09-20] MEDS: SODIUM CHLORIDE 0.9% 1000ML 1,000 ML IV SCH (09:01)
--- NOTE | 2021-09-20 17:15 | Hospitalist Progress Note ---
Date of Service September 20, 2021 Assessment & Plan (1) Anemia: (2) Acute pulmonary embolism: (3) DVT (deep venous thrombosis): Plan: ASSESSMENT AND PLAN: This 56-year-old male presents with symptomatic anemia. 1. Profound anemia, likely secondary to underlying GI bleed Admitted with melena, hemoglobin of 4 Patient has received 4 units of packed RBCs Hemoglobin stable around 8 for the past 3 days No recurrence of abdominal hematoma Iron level 4, IV iron given Status post IVC filter placement 09/16/2021 Status post EGD by Dr. Falcon 09/19/2021 Showing clean-based ulcer in the hernia sac, large hiatal hernia Recommend general surgery evaluation-Per general surgery, outpatient follow-up Recommend to hold any anticoagulation for 3 days since EGD Resume anticoagulation on , September 22, [address] Marks- recommending Lovenox 80 mg twice daily x1 week, then resume Eliquis 5 mg p.o. twice daily Diet advanced to soft, tolerating well Protonix drip transitioned to Protonix p.o. twice daily 2. Acute pulmonary embolism and deep venous thrombosis. CT chest:Segmental and subsegmental pulmonary emboli of the right lower lobe and lingula. No central pulmonary bullae or right heart strain. Echocardiogram: EF 6065%, left to, motion is normal, normal LV relaxation, no significant valvular pathology -- on room air BP stable asymptomatic -- s/p IV filter placement 09/16/21 -- Management of anticoagulation as noted above 3. Iron-deficiency. --Management per #1 4. Deep venous thrombosis prophylaxis: Restart anticoagulation with therapeutic Lovenox on , September 22, 2021 DISPOSITION:Pending Anticipate discharge to home when medically stable plan of care discussed with patient in detail and at length all questions answered he is understanding, agreeable, comfortable with the plan of care Admission and Anticipated Discharge Date Admission Date: September 16, 2021 Subjective Follow-up for profound anemia, GI bleed, acute PE/DVT, etc. Seen resting in bed, comfortable, not in distress States he feels fine overall No chest pain, shortness of breath, cough, leg pain No palpitations, dizziness Abdominal pain, nausea vomiting Tolerating diet well No BM yet No other symptoms Review of Systems Review of Systems: all noted and negative except for above Physical Exam Physical Exam: General- oriented x 3, not in distress, speaks in sentences with no effort or accessory muscle use Eyes- anicteric Neck- no JVD Lungs- clear BS BL Heart- normal rate, regular rhythm; no murmurs Abdomen- normal bowel sounds, nondistended, soft, no tenderness in all quadrants Extremities- trace pretibial edema, no calf tenderness Neuro- alert, oriented x 3; no gross focal neurologic deficits Skin- warm & dry Results & Data Results & Data ([facility]) Vital Signs (Past 12 Hours) Vital Signs Temp Pulse Resp BP BP Pulse Ox 09/20/21 16:19 36.5 C 78 18 144/71 H 98 09/20/21 11:44 37.0 C 69 20 135/69 98 09/20/21 08:16 36.7 C 92 H 20 157/79 H 95 all noted and reviewed including below (1) DVT (deep venous thrombosis) Affected thrombotic vein of extremity: unspecified lower extremity distal vein Chronicity: acute DVT location: lower extremity Laterality: left Qualified Code(s): I82.4Z2 - Acute embolism and thrombosis of unspecified deep veins of left distal lower extremity (2) Anemia Anemia type: unspecified type Qualified Code(s): D64.9 - Anemia, unspecified
[2021-09-20] MEDS: PANTOprazole 40 MG TAB PO SCH (20:30)
[2021-09-21 06:44] LABS: Basophils # (auto) 0.01 K/uL (0-0.2); Basophils % (auto) 0.1 %; Eosinophils # (auto) 0.48 K/uL (0-0.5); Eosinophils % (auto) 6.4 %; Hemoglobin 8.8 g/dL (14.0-18.0); Immature Granulocytes # (auto) 0.01 K/uL (0.00-0.02); Immature Granulocytes % (auto) 0.1 %; Lymphocytes # (auto) 1.24 K/uL (1.2-3.4); Lymphocytes % (auto) 16.6 %; Mean Corpuscular Hemoglobin 22.4 pg (25-34); Mean Corpuscular Hgb Conc 29.3 g/dL (32-36); Mean Corpuscular Volume 76.5 fL (80-100); Mean Platelet Volume 9.4 fL (7.4-10.4); Monocytes # (auto) 0.53 K/uL (0.11-0.59); Monocytes % (auto) 7.1 %; Neutrophils # (auto) 5.22 K/uL (1.4-6.5); Neutrophils % (auto) 69.7 %; Platelet Count 298 K/uL (130-400); Red Blood Count 3.92 M/uL (4.7-6.1); White Blood Count 7.49 K/uL (4.8-10.8)
[2021-09-21 07:15] LABS: Anisocytosis Present; Hypochromasia Present; Microcytosis Present; Polychromasia 1+
[2021-09-21 07:22] LABS: BUN Creatinine Ratio 8.8 (10-20); Calcium 8.3 mg/dl (8.5-10.1); Creatinine Clr Calc Pharmacy 87.6 ml/min; Est GFR (African American) 97.8 ml/min; Est GFR (Non-African American) 84.4 ml/min; Potassium 3.6 mmol/L (3.5-5.1)
[2021-09-21] MEDS: FEXOFENADINE HCL 180 MG TAB PO SCH (09:04)
[2021-09-21] MEDS: FLUTICASONE PROPIONATE NA SPR 16 GM BTL SCH ×2 (09:04→20:18)
[2021-09-21] MEDS: PANTOprazole 40 MG TAB PO SCH ×2 (09:04→20:18)
--- NOTE | 2021-09-21 23:54 | Hospitalist Progress Note ---
Date of Service September 21, 2021 Assessment & Plan (1) Anemia: (2) Acute pulmonary embolism: (3) DVT (deep venous thrombosis): Plan: Present on admission with symptomatic anemia. 1. Profound anemia, likely secondary to underlying GI bleed Admitted with melena, hemoglobin of 4 Patient has received 4 units of packed RBCs Hemoglobin stable at 8.8 No recurrence of abdominal hematoma Iron level 4, IV iron given Status post IVC filter placement 09/16/2021 Status post EGD by Dr. Falcon 09/19/2021 Showing clean-based ulcer in the hernia sac, large hiatal hernia Recommend general surgery evaluation-Per general surgery, outpatient follow-up Recommend to hold any anticoagulation for 3 days since EGD Continue PPI PO BID Will resume anticoagulant on September 22, [address] Marks- recommending Lovenox 80 mg twice daily x1 week, then resume Eliquis 5 mg p.o. twice daily 2. Acute pulmonary embolism and deep venous thrombosis. CT chest:Segmental and subsegmental pulmonary emboli of the right lower lobe and lingula. No central pulmonary bullae or right heart strain. Echocardiogram: EF 6065%, left to, motion is normal, normal LV relaxation, no significant valvular pathology -- on room air BP stable asymptomatic -- s/p IV filter placement 09/16/21 -- Management of anticoagulation as noted above 3. Iron-deficiency. --Management per #1 4. Deep venous thrombosis prophylaxis: Restart anticoagulation with therapeutic Lovenox on , September 22, 2021 DISPOSITION: Anticipate discharge to home when medically stable plan of care discussed with patient in detail and at length all questions answered he is understanding, agreeable, comfortable with the plan of care Admission and Anticipated Discharge Date Admission Date: September 16, 2021 Subjective Pt was seen and examined for follow up of anemia Sitting in bed with no acute distress Pt said that he feels fine Denies any chest pain, palpitation, dizziness and SOB Review of Systems Review of Systems: All systems reviewed & are unremarkable except as noted in Subjective Physical Exam Physical Exam: General- No acute distress Head- atraumatic Eyes- PERRL, EOMI, ENT- oropharynx clear Neck- supple, no JVD Lungs- clear to auscultation Heart- regular rhythm; no murmur Abdomen- normal bowel sounds, soft, nontender Extremities- no calf tenderness Neuro- alert, oriented x 3; PERRL, EOMI; no facial palsy; no dysarthria Skin- warm & dry Results & Data Results & Data ([facility]) Vital Signs (Past 12 Hours) Vital Signs Temp Pulse Pulse Resp BP Pulse Ox 09/21/21 19:21 36.8 C 82 18 143/81 H 97 09/21/21 16:18 37.2 C 87 18 119/58 L 09/21/21 15:32 74 09/21/21 11:58 37.0 C 86 18 120/63 95 (1) DVT (deep venous thrombosis) Affected thrombotic vein of extremity: unspecified lower extremity distal vein Chronicity: acute DVT location: lower extremity Laterality: left Qualified Code(s): I82.4Z2 - Acute embolism and thrombosis of unspecified deep veins of left distal lower extremity (2) Anemia Anemia type: unspecified type Qualified Code(s): D64.9 - Anemia, unspecified
[2021-09-22 07:04] LABS: Basophils # (auto) 0.02 K/uL (0-0.2); Basophils % (auto) 0.3 %; Eosinophils # (auto) 0.36 K/uL (0-0.5); Eosinophils % (auto) 4.9 %; Hematocrit (blood only) 32.2 % (42-52); Hemoglobin 9.4 g/dL (14.0-18.0); Immature Granulocytes # (auto) 0.02 K/uL (0.00-0.02); Immature Granulocytes % (auto) 0.3 %; Lymphocytes # (auto) 1.05 K/uL (1.2-3.4); Lymphocytes % (auto) 14.3 %; Mean Corpuscular Hemoglobin 22.6 pg (25-34); Mean Corpuscular Hgb Conc 29.2 g/dL (32-36); Mean Corpuscular Volume 77.4 fL (80-100); Mean Platelet Volume 9.5 fL (7.4-10.4); Monocytes # (auto) 0.41 K/uL (0.11-0.59); Monocytes % (auto) 5.6 %; Neutrophils # (auto) 5.49 K/uL (1.4-6.5); Neutrophils % (auto) 74.6 %; Platelet Count 292 K/uL (130-400); Red Blood Count 4.16 M/uL (4.7-6.1); White Blood Count 7.35 K/uL (4.8-10.8)
[2021-09-22 07:32] LABS: BUN Creatinine Ratio 12.9 (10-20); Calcium 8.6 mg/dl (8.5-10.1); Creatinine Clr Calc Pharmacy 89.1 ml/min; Est GFR (African American) 100.2 ml/min; Est GFR (Non-African American) 86.4 ml/min; Potassium 3.8 mmol/L (3.5-5.1)
[2021-09-22 07:45] LABS: Anisocytosis Present; Hypochromasia Present
[2021-09-22] MEDS: ENOXAPARIN 80 MG/0.8 ML SYR SQ SCH ×2 (08:41→19:58)
[2021-09-22] MEDS: PANTOprazole 40 MG TAB PO SCH ×2 (08:47→19:57)
[2021-09-22] MEDS: FEXOFENADINE HCL 180 MG TAB PO SCH (08:47)
[2021-09-22] MEDS: FLUTICASONE PROPIONATE NA SPR 16 GM BTL SCH ×2 (08:48→19:58)
--- NOTE | 2021-09-23 00:15 | Hospitalist Progress Note ---
Date of Service September 22, 2021 Assessment & Plan (1) Anemia: (2) Acute pulmonary embolism: (3) DVT (deep venous thrombosis): Plan: Present on admission with symptomatic anemia. 1. Profound anemia, likely secondary to underlying GI bleed Admitted with melena, hemoglobin of 4 Patient has received 4 units of packed RBCs Hemoglobin stable at 9.4 No recurrence of abdominal hematoma Iron level 4, IV iron given Status post IVC filter placement 09/16/2021 Status post EGD by Dr. Falcon 09/19/2021 Showing clean-based ulcer in the hernia sac, large hiatal hernia Recommend general surgery evaluation-Per general surgery, outpatient follow-up Recommend to hold any anticoagulation for 3 days since EGD Continue PPI PO BID Anticoagulant resumed today Discussed with Dr. Marks- recommending Lovenox 80 mg twice daily x1 week, then resume Eliquis 5 mg p.o. twice daily Will monitor for sign of bleeding 2. Acute pulmonary embolism and deep venous thrombosis. CT chest:Segmental and subsegmental pulmonary emboli of the right lower lobe and lingula. No central pulmonary bullae or right heart strain. Echocardiogram: EF 60 to 65%, left to, motion is normal, normal LV relaxation, no significant valvular pathology S/P IV filter placement 09/16/21 Anticoagulant resumed today Discussed with Dr. Marks- recommending Lovenox 80 mg twice daily x1 week, then resume Eliquis 5 mg p.o. twice daily Will monitor for sign of bleeding 3. Iron-deficiency. Hgb stable at 9.4 4. Deep venous thrombosis prophylaxis: Restart anticoagulation with therapeutic Lovenox on , September 22, 2021 DISPOSITION: Anticipate discharge to home when medically stable plan of care discussed with patient in detail and at length all questions answered he is understanding, agreeable, comfortable with the plan of care Admission and Anticipated Discharge Date Admission Date: September 16, 2021 Subjective Pt was seen and examined for follow up of anemia Sitting in bed with no acute distress Pt said that he feels fine Pt said that he would be comfortable to administer his lovenox Denies any chest pain, palpitation, dizziness and SOB Review of Systems Review of Systems: All systems reviewed & are unremarkable except as noted in Subjective Physical Exam Physical Exam: General- No acute distress Head- atraumatic Eyes- PERRL, EOMI, ENT- oropharynx clear Neck- supple, no JVD Lungs- clear to auscultation Heart- regular rhythm; no murmur Abdomen- normal bowel sounds, soft, nontender Extremities- no calf tenderness Neuro- alert, oriented x 3; PERRL, EOMI; no facial palsy; no dysarthria Skin- warm & dry Results & Data Results & Data ([facility]) Vital Signs (Past 12 Hours) Vital Signs Temp Pulse Pulse Resp BP Pulse Ox 09/22/21 20:23 36.4 C L 87 18 121/70 97 09/22/21 15:45 36.6 C 69 18 143/88 H 99 09/22/21 14:58 116 H (1) Anemia Anemia type: unspecified type Qualified Code(s): D64.9 - Anemia, unspecified (2) DVT (deep venous thrombosis) Affected thrombotic vein of extremity: unspecified lower extremity distal vein Chronicity: acute DVT location: lower extremity Laterality: left Qualified Code(s): I82.4Z2 - Acute embolism and thrombosis of unspecified deep veins of left distal lower extremity
[2021-09-23 06:56] LABS: Hemoglobin 9.8 g/dL (14.0-18.0); Mean Corpuscular Hemoglobin 22.2 pg (25-34); Mean Corpuscular Hgb Conc 28.8 g/dL (32-36); Mean Corpuscular Volume 77.1 fL (80-100); Mean Platelet Volume 9.9 fL (7.4-10.4); Platelet Count 337 K/uL (130-400); Red Blood Count 4.41 M/uL (4.7-6.1); White Blood Count 7.06 K/uL (4.8-10.8)
[2021-09-23 07:17] LABS: Anisocytosis Present; Basophils # (auto) 0.01 K/uL (0-0.2); Basophils % (auto) 0.1 %; Eosinophils # (auto) 0.35 K/uL (0-0.5); Immature Granulocytes # (auto) 0.01 K/uL (0.00-0.02); Immature Granulocytes % (auto) 0.1 %; Lymphocytes # (auto) 1.14 K/uL (1.2-3.4); Lymphocytes % (auto) 16.1 %; Monocytes # (auto) 0.48 K/uL (0.11-0.59); Monocytes % (auto) 6.8 %; Neutrophils # (auto) 5.07 K/uL (1.4-6.5); Neutrophils % (auto) 71.9 %; Poikilocytosis Present; Polychromasia 1+
[2021-09-23 08:16] LABS: BUN Creatinine Ratio 15.5 (10-20); Calcium 8.6 mg/dl (8.5-10.1); Creatinine Clr Calc Pharmacy 87.4 ml/min; Est GFR (African American) 97.8 ml/min; Est GFR (Non-African American) 84.4 ml/min
[2021-09-23] MEDS: ENOXAPARIN 80 MG/0.8 ML SYR SQ SCH (08:22)
[2021-09-23] MEDS: FLUTICASONE PROPIONATE NA SPR 16 GM BTL SCH (08:22)
[2021-09-23] MEDS: FEXOFENADINE HCL 180 MG TAB PO SCH (08:23)
[2021-09-23] MEDS: PANTOprazole 40 MG TAB PO SCH (08:23)
--- NOTE | 2021-09-23 14:04 | Discharge Summary ---
Date of Service September 23, 2021 Admission HPI Per Admitting Provider CHIEF COMPLAINT: Abnormal labs. HISTORY OF PRESENT ILLNESS: A 56-year-old male with past medical history significant for pulsatile tinnitus , hearing loss, was sent in by PCP because of abnormal labs. The patient is having shortness of breath on exertion for 2 weeks and some runny nose from his allergies. He went to urgent care and as was not getting better went sent to see PCP. He was seen by PCP yesterday. It seems his shortness of breath is worse for the last 1 week. It is mostly worse with exertion and he also has some swelling in the left leg. PCP ordered some labs and he also had a left lower extremity Doppler. The left lower extremity Doppler came back as acute DVT and he is placed on Eliquis, but later the labs came, his hemoglobin was 3.5 and he is advised to come to the ER. In the ER, his hemoglobin is 4, WBC is 12, platelets 424, creatinine 1.2. COVID negative. The patient is not vaccinated for COVID. He is hemodynamically stable. Stool was brown, but was positive for Hemoccult as per the ER. The patient denies any chest pain, no nausea, no vomiting, no abdominal pain, no diarrhea. He says once in a while, he has black stools. Denies taking any aspirin or appr-xyk-vvuimih ibuprofen or any pain medications. Denies any headache. No blurred visions, no earache, no sore throat. Appetite is okay. No recent weight gain or weight loss. No difficulty swallowing. Normal bladder movements. in the room who answered most of the history. Admission Exam Per Admitting Provider GENERAL: The patient is of moderate build, not in acute distress. VITAL SIGNS: Temperature 37.1, pulse 102, respiratory rate 20, blood pressure 131/72, oxygen 98% on room air. HEENT: Pupils equal, round and reactive to light. Oral mucosa moist. NECK: No JVD. No neck masses. CARDIOVASCULAR: S1 and S2 heard. Regular rate and rhythm. No murmur, no gallop. RESPIRATORY SYSTEM: Normal AP diameter. No accessory muscle use. No wheezing, no crackles. ABDOMEN: Soft, bowel sounds present, nontender, no distention. CENTRAL NERVOUS SYSTEM: Cranial nerves II through XII are grossly intact, nonfocal. EXTREMITIES: Mild pedal edema present. Left lower extremity is slightly warm. Principal Diagnosis (1) Anemia: (2) Acute pulmonary embolism: (3) DVT (deep venous thrombosis): Discharge Exam General- No acute distress Head- atraumatic Eyes- PERRL, EOMI, ENT- oropharynx clear Neck- supple, no JVD Lungs- clear to auscultation Heart- regular rhythm; no murmur Abdomen- normal bowel sounds, soft, nontender Extremities- no calf tenderness Neuro- alert, oriented x 3; PERRL, EOMI; no facial palsy; no dysarthria Skin- warm & dry Discharge Data Allergies Allergy/AdvReac Type Severity Reaction Status Date / Time No Known Allergies Allergy Verified 09/19/21 09:02 Consultations 09/16/21 05:50 ED Decision to Admit Stat 09/16/21 07:23 Consult Gastroenterology Routine Consult Vascular Surgery Routine 09/19/21 11:22 Consult General Surgery Routine 09/20/21 13:54 Consult General Surgery Routine Procedures Performed Operation Date: 09/16/21 12:20 Actual Procedures p Insertion of Vena Cava Filter Right Jugular Vein Approach, Ultrasound Localization of Right Jugular Vein, Fluoroscopy for Positioning, Moderate Sedation [id number](Right) - Ming Up MD Operation Date: 09/19/21 16:00 Actual Procedures p EGD Biopsy Cytology - Maynor Falcon MD s Colonoscopy - Maynor Falcon MD Ordered Studies 09/16/21 06:41 CT angio chest PE protocol Stat 09/16/21 10:38 EV IVC filter placement Urgent 09/17/21 08:37 CT abd pelvis wo con Routine CT abd pelvis wo con CLINICAL HISTORY: GI bleed, anemia COMPARISON STUDY: CTA of the chest from 09/16/2021 CT DOSE: 864.06 mGycm TECHNIQUE: Standard CT of the Abdomen and Pelvis was performed without IV contrast. The patient did not receive oral contrast. A dose lowering technique was utilized adhering to the principles of ALARA. FINDINGS: Lung base: There is mild right basilar atelectasis. The lung bases are otherwise clear. Abdominal cavity: There is no evidence for abdominal mass, adenopathy or ascites. Liver: The liver is homogeneous in attenuation on these limited noncontrast images.. Spleen: The spleen is homogeneous in attenuation on these limited noncontrast images. Pancreas: The pancreas is homogeneous in attenuation on these limited noncontrast images. Gall Bladder: The gallbladder is well distended with evidence of cholelithiasis. There is no CT evidence for acute cholecystitis. Adrenal glands: The adrenal glands are normal in size and attenuation on these limited noncontrast images. Kidneys: The kidneys are homogeneous in attenuation on these limited noncontrast images. There is no evidence for gross renal mass, calculus or hydronephrosis bilaterally. Bowel: There is a very large hiatal hernia with majority of the stomach herniated into the posterior chest. The remaining bowel loops are normally placed within the abdomen and pelvis without evidence for dilatation or obstruction. There is no evidence for mass lesion. There are no inflammatory c hanges present. There is no evidence for free air. The appendix is not visualized. There are bilateral inguinal hernias containing peritoneal fat. No bowel loop herniation is seen. Bladder: There is no evidence for focal bladder wall thickening, calculus or diverticulum. There is contrast seen within the bladder from previous CTA chest. : There is no evidence for pelvic mass or adenopathy. Vasculature: There is no evidence for focal aneurysmal dilatation of the abdominal aorta. IVC filter is in place. Osseous structures: There is no acute osseous pathology. IMPRESSION: 1. No acute intra-abdominal or pelvic abnormality on these limited noncontrast images. 2. Very large hiatal hernia. 3. Cholelithiasis with no CT evidence for acute cholecystitis. 4. Additional nonacute findings as delineated above. ACT 112: Negative or not required by law. Electronically signed by: Ziggy Lizarraga M.D. 09/17/2021 3:38 PM Dictated:09/17/21 1530 Transcribed: 09/17/[address] angio chest PE protocol CT DOSE: 480.59 mGy.cm HISTORY: 56 years-old Male with PE. Acute shortness of breath TECHNIQUE: Multiple CTA images of the chest were obtained after the intravenous administration of 120 ml Optiray. Coronal and sagittal MIPS were obtained from the axial data set and were submitted for review. All measurements were obtain ed according to NASCET criteria. A dose lowering technique was utilized adhering to the principles of ALARA. COMPARISON: None. FINDINGS: CTA: Mild cardiomegaly. No pericardial effusion. No thoracic aortic aneurysm or dissection. Patency of the imaged great vessels. The pulmonary artery is opacified to level the subsegmental branches. Evaluation is limited secondary to respiratory motion artifact. Segmental and subsegmental pulmonary emboli of the right lower lobe and lingula. No central pulmonary bullae or right heart strain. CT CHEST: Unremarkable thyroid. Mildly enlarged paratracheal, subcarinal and hilar lymph nodes measure up to approximately 10 mm. Trace pleural effusions. No pneumothorax. Mild intralobular septal thickening with subsegmental bibasilar atelectasis. 2.6 cm subpleural consolidative opacity of the lingula on image 132. The central airways are patent. Large hiatal hernia. Mild diffuse esophageal wall thickening. Unremarkable soft tissues. There is no acute fracture. IMPRESSION: 1. Study is degraded by respiratory motion artifact. Segmental and subsegmental bilateral pulmonary emboli are noted without evidence of right heart strain. 2. Trace pleural effusions. 3. Cardiomegaly with mild pulmonary edema. 4. Groundglass densities of the lingula with a 2.6 cm subpleural consolidative density suggestive of pneumonia versus pulmonary infarct. 5. Large hiatal hernia with mild diffuse esophageal wall thickening. ACT 112: Negative or not required by law. The above report was generated using voice recognition software. It may contain grammatical, syntax or spelling errors. Electronically signed by: Kadeem Linder M.D. 09/16/2021 8:13 AM Dictated:09/16/21801 Transcribed: 09/16/21801 Hospital Course (1) Anemia: (2) Acute pulmonary embolism: (3) DVT (deep venous thrombosis): Present on admission with symptomatic anemia. 1. Profound anemia, likely secondary to underlying GI bleed Admitted with melena, hemoglobin of 4 Patient has received 4 units of packed RBCs Hemoglobin stable at 9.4 No recurrence of abdominal hematoma Iron level 4, IV iron given Status post IVC filter placement 09/16/2021 Status post EGD by Dr. Falcon 09/19/2021 Showing clean-based ulcer in the hernia sac, large hiatal hernia Recommend general surgery evaluation-Per general surgery, outpatient follow-up Recommend to hold any anticoagulation for 3 days since EGD Continue PPI PO BID Anticoagulant resumed today Discussed with Dr. Marks- recommending Lovenox 80 mg twice daily x1 week, then resume Eliquis 5 mg p.o. twice daily Will monitor for sign of bleeding 2. Acute pulmonary embolism and deep venous thrombosis. CT chest:Segmental and subsegmental pulmonary emboli of the right lower lobe and lingula. No central pulmonary bullae or right heart strain. Echocardiogram: EF 60 to 65%, left to, motion is normal, normal LV relaxation, no significant valvular pathology S/P IV filter placement 09/16/21 Anticoagulant resumed today Discussed with Dr. Marks- recommending Lovenox 80 mg twice daily x1 week, then resume Eliquis 5 mg p.o. twice daily Will monitor for sign of bleeding 3. Iron-deficiency. Hgb stable at 9.4 4. Deep venous thrombosis prophylaxis: Restart anticoagulation with therapeutic Lovenox on , September 22, 2021 DISPOSITION: Anticipate discharge to home when medically stable plan of care discussed with patient in detail and at length all questions answered he is understanding, agreeable, comfortable with the plan of care Total Time Total Time Spent Total Time Spent (In Minutes): 35 minutes Discharge Plan Discharge Items Patient Disposition: Home - Self-Care Reason For Visit: ABNORMAL LABS Discharge Diagnosis: (1) Anemia: (2) Acute pulmonary embolism: (3) DVT (deep venous thrombosis): Activity: Resume your previous activity Non-emergency contact: Primary Care Provider Call non-emergency contact if: you have any medication questions Follow-up/Referrals: Fidel Guerrero MD [Primary Care Provider] - (Date & Time 09/26/2021 11:00 AM Provider Fidel Guerrero MD Department General Internal Medicine [facility] ) Diet: Heart Healthy Addtl Attending Provider Instructions: Follow up with your primary care provider 09/26/2021 11:00 AM Fidel Guerrero MD Department General Internal Medicine [facility] Follow up with gastroenterology to repeat scope in 8 weeks for ulcer resolution. Follow up with surgery outpatient to evaluate for the large Hiatal hernia Continue Lovenox 80mg twice a day for 6 more days, then starting on Eliquis 5mg twice a day ( 12 hours after the next last dose of the Lovenox) Please hold Eliquis for now while taking the lovenox Check CBC in 1 week to monitor your hemoglobin Fall precaution Medication Instructions:Eliquis Your condition is typically treated with an anticoagulant. Anticoagulants will thin your blood to help prevent new clots. You should take her medication exactly as directed. Never skip a dose. Never take a double dose. If you miss a dose, take it as soon as you remember. Avoid NSAIDs (Motrin, Aleve, Naproxen, Ibuprofen, Advil, Meloxicam,..) due to risks of bleeding Call your Primary Care doctor if you experience any of the following: Swelling or Pain in your leg Sudden, continuous pain deep in a muscle Pain that worsens when you are active or when you stand still for a long time Chest Pain Sudden Shortness of Breath Rapid or pounding heart beat Fainting Dizziness Cough with blood or bloody sputum Sweating more than normal Bruises Heavy or uncontrolled bleeding Blood in your urine, stool or vomit Black or tarry stools Pending Studies at Discharge: No Stand-Alone Forms: [facility] Medications and DC Order Prescriptions: New pantoprazole 40 mg Tablet,Delayed Release (Dr/Ec) 40 mg PO BID 30 Days Qty: 60 RF: 0 Continued levocetirizine 5 mg tablet 5 mg PO DAILY RF: 0 Eliquis 5 mg tablet 5 mg PO BID RF: 0 benzonatate 100 mg capsule 100 mg PO TID RF: 0 Discontinued omeprazole 20 mg capsule,delayed release(DR/EC) 20 mg PO DAILY RF: 0 Discharge Orders: Discharge Order (Routine); Ordered 09/23/21 Ordered By: Daria Landon Admission Data Admit Date/Time: 09/16/21 06:41 Attending Provider: Daria Landon Admit Provider: Ty Lorenzo Primary Care Provider: Fidel Guerrero Other Providers: Ty Lorenzo ; Maynor Falcon ; Ming Up ; Ganesh Mcnair ; Jorge Main ; May Jensen ; Pily Kurtz ; Andrew Olivares ; Sesar Kearney ; Magalys Wolf ; Niki Hollingsworth ; Darrius Dillard Jr ; Roberto Carlos Verdugo ; Victorino Ramos ; Мария Tao ; Deepak Moreau Other Interventions: Discharge Summary Assessment (RN) Last Done: 09/23/21 13:58
--- NOTE | 2021-09-30 10:57 | Coding Query ---
CODING QUERY To promote full compliance with coding requirements relating to patient care, provider participation is requested in all cases of staking press operator uncertainty. Please assist us with the question(s) below: Coding Question(s): Pt admitted with severe anemia and melena. EGD found clean based stomach ulcer. DS states UGI bleed- . Please document, if known or suspected, the etiology of the melena. Thanks for your help. Russ Mcdonnell [facility] Physician's Response(s): Unknown etiology Principal Diagnosis: "that condition established after study, to be chiefly responsible for occasioning the admission of the patient to the hospital for care." Co-Existing Principal Diagnosis: "when two or more diagnoses equally meet the criteria for principal diagnosis as determined by the circumstances of admission, diagnostic work up, and/or therapy provided, and the Alphabetic Index, Tabular List, or another coding guideline does not provide sequencing direction, any one of the diagnoses may be sequenced first." "When the physician has documented what appears to be a current diagnosis in the body of the record, but has not included the diagnosis in the final diagnostic statement, the physician should be asked whether the diagnosis should be added." (Source [facility] 2 QTR90. p3-4) ADINAD
== END 2021-09-23 14:19 | disposition home or self-care (01) | DRG 377 ==
LOC: ED 03:26 → EDINP 06:41 → SUATTDRO 06:41 → 2S 10:37